=== PATIENT | female | born 2000 | race Caucasian/White ===

== ENCOUNTER 2021-02-25 17:10 | Outpatient (CLI) | payer OTHER, SELFPAY ==
[2021-02-25 18:50] LABS: Amphetamine Urine VISTA NEGATIVE (<1000 ng/mL); Barbiturate Urine VISTA NEGATIVE (< 200 ng/mL); Benzodiazepine Urine VISTA NEGATIVE (< 200 ng/mL); Cocaine Urine VISTA NEGATIVE (< 300 ng/mL); Ecstacy Urine VISTA NEGATIVE (< 500 ng/mL); Methadone Urine VISTA NEGATIVE (< 300 ng/mL); PCP Urine VISTA NEGATIVE (< 25 ng/mL); THC Urine VISTA NEGATIVE (< 50 ng/mL); Vista UDS pH Range 7
[2021-02-27 22:06] LABS: Chlamydia By Nucleic Acid AMP Negative (Negative)
[2021-02-28 16:12] LABS: Gonococcus By Nucleic Acid AMP Negative (Negative)
[2021-03-03 16:28] LABS: HPV Reflexed? NOT INDICATED
== END 2021-02-25 23:59 | disposition short-term general hospital (02) ==
LOC: LABSPEC 17:11
PROVIDERS: Visit Provider Obstetrics & Gynecology
DX: Z34.00 Encounter for supervision of normal first pregnancy, unspecified trimester (principal)
CPT/HCPCS: 80307; 87086; 87088; 87491; 87591; 88175; G0145

== ENCOUNTER 2021-03-10 12:02 | Day surgery (SDC) | payer OTHER, SELFPAY ==
[2021-03-10] VITALS (7 sets, daily range): BP systolic 98–113; BP diastolic 59–81; PULSE 65–83; RESP 16; TEMP 36.6–37.1; O2SAT 98–100; BMI 21.4
--- NOTE | 2021-03-10 | POC_PTH ---
PATIENT: PAN RIVERA LOC: [facility] – [place] U#:[id number] AGE/SX: ROOM: RE03/10/[address]: Dr. Shruthi Houston DO : 2000 BED: DIS: 03/10/2021 SPEC #: [id number] RECD: 03/10/21 14:51 STATUS: HUSSAIN ENNIS #: [id number] MARGARITO: 03/10/21 00:[address]: Shruthi Houston DEPT: SURGICAL PATHOLOGY RECD BY: Dipak Lombardi ENTERED: 03/11/21 09:27 SP TYPE: PROD CONC OTHR DR: Isabella Hernandez, TRADES HELPER-Tara Tissues: Product of conception, NOS Procedures: Surgery Specimen Level IV HEADER OPERATION: Suction dilation and curettage PRE-OP DIAGNOSIS: Incomplete TISSUE SUBMITTED: Products of conception MICROSCOPIC DIAGNOSIS Endometrium, curettage: Chorionic villi, decidualized stroma and trophoblastic cells consistent with products of conception. AM:brit 03/12/2021 MICROSCOPIC DESCRIPTION Slides are reviewed. GROSS DESCRIPTION Received in fixative is one container labeled with the patient's name and designated products of conception. The specimen consists of multiple irregular fragments of pink-red soft tissue that in aggregate measure 5 x 4.5 x 1 cm. tissue is not identified. Clean Energy Policy Analyst tissue is submitted in three cassettes. / SJ:brit 03/11/2021 TC:5 CPT: 71620
[2021-03-10] MEDS: Doxycycline 100 MG CAPSULE PO (12:44)
[2021-03-10] MEDS: Lactated Ringers 1,000 ML 125 ML IV (12:45)
[2021-03-10 13:05] LABS: Absolute Lymphocyte Count 1.53 X10^3/uL (0.83-4.51); Absolute Neutrophil Count 3.5 X10^3/uL (2.0-7.7); Basophil# 0.03 X10^3/uL; Basophil% 0.5 % (0-1); Eosinophil# 0.03 X10^3/uL; Eosinophils% 0.5 % (0-5); Hematocrit 38.5 % (37-47); Hemoglobin 13.7 g/dL (12.0-15.0); Lymphocyte # 1.53 X10^3/ul (0.83-4.51); Lymphocyte % 27.8 % (19-41); Mean Corp Hgb Conc 35.6 g/dL (32-36); Mean Corpuscular Hgb 31.5 pg (27.0-32.0); Mean Corpuscular Volume 88.5 fL (81-99); Mean Platelet Vol. 8.9 fl (6.2-12.0); Monocyte# 0.46 X10^3/uL; Monocyte% 8.3 % (0-10); NRBC Flagged by Analyzer 0 % (0-5); Neutrophil # 3.45 X10^3/uL (2.7-7.7); Neutrophil % 62.7 % (47-70); Platelet Count 291 K/mm3 (150-450); RBC Distribution Width CV 12.7 % (11.6-14.6); RBC Distribution Width SD 41.4 fl (35.1-43.9); Red Blood Count 4.35 M/mm3 (4.2-5.4); White Blood Count 5.5 K/mm3 (4.4-11.0)
--- NOTE | 2021-03-10 13:25 | HP.PCM_ITS ---
History and Physical Date of Admission: 03/10/21 Vital Signs 03/10/21 08:10 Height 5 ft 3 in Weight: 123 lb 6 oz BMI 21.8 BP 118/72 Intake Visit Reasons: OB-Spotting Telephone Sterilizer Required: No Is patient in pain?: No Allergies No Known Allergies Allergy (Verified 03/10/21 08:10) Medications docosahexaenoic acid 200 mg capsule mg PO 02/25/21 [History Confirmed 03/10/21] Last Menstral Period: 12/19/20 Zika: Zika virus screening: Negative : No PFSH PFSH Surgical History S/P knee replacement S/P spinal fusion Family History Other Diabetes Social History Smoking Status: Never smoker alcohol intake: never substance use type: does not use caffeine: Yes what type of physical activity do you participate in: other details: cheer for [employer] frequency: 3-4 times per week seatbelt use: always do you feel safe at home: Yes additional social history: Boyfriend-Kelvin Pregancy History 1 Elective abortions Hx Para Spontaneous abortions Hx # Term Pregnancies Ectopic pregnancies Hx # Pregnancies Multiple births # of living children HPI OB-Spotting Details: PAN RIVERA is a 21 year old who presents for early bleeding. she had small spotting last night and some cramping, no fevers. she has been measuring behind her original KENDALL and there has been slow growth of the pole. today confirmation of loss upon ultrasound was made in office. OB Visit KENDALL Calculator Estimated Delivery Date Method Current WG Current Estimate 10/29/21 Ultrasound #1 6w 5d Other Estimates 09/22/21 LMP (Certain) 12w 0d Initial Weight: Not Recorded Date EGA Weight BP Urine Prot Glucose FHR FuHt Pres Dilation Effaced St Visit Note 02/25/21 4w 6d 119 lb 6 oz 108/60 SM- CRL 1.6mm and GS 9mm yolk sac seen no FHT. 03/05/21 6w 0d 120 lb 100/60 97 SM- SM- CRL 3.6mm MSD 16.8mm yolk sac enlarged 7.2mm. no vb cramping discussed short term follow up 03/10/21 6w 5d 123 lb 6 oz 118/72 SM- co bleeding last night some cramping. upon evaluation CRL 4.6 mm and now no FHT seen. collapsing GS. Diagnostics Diagnostics Diagnostics: Chlamydia DNA (TRACY) Negative (Negative) N.gonorrhoeae DNA (TRACY) Negative (Negative) Details: HIV: Urine Culture: Sequential Screen: NIPT Screen: ROS Const Reports as per HPI and Denies fever(s) ENT Reports system reviewed and no additional complaints, except as documented Card Reports system reviewed and no additional complaints, except as documented Resp Reports system reviewed and no additional complaints, except as documented GI Reports as per HPI Reports as per HPI and Reports abnormal vaginal bleeding Musc Reports system reviewed and no additional complaints, except as documented Skin/Breast Reports system reviewed and no additional complaints, except as documented Neuro Yes system reviewed and no additional complaints, except as documented Endo Reports system reviewed and no additional complaints, except as documented Exam Const General: healthy appearing, comfortable and no acute distress HENKY Head: normal to inspection and normocephalic Neck Neck: no lymphadenopathy noted Thyroid: thyroid normal Chest Chest palpation & inspection: normal inspection of the chest Resp Effort & Inspection: normal respiratory effort Cardio Rate: regular rate Rhythm: regular rhythm GI Inspection: normal to inspection Palpation: soft and nontender External Female Exam: normal external appearance Speculum Exam - Vagina: normal appearance of the vagina and vaginal bleeding Bimanual Exam- Vagina & Uterus: uterine shape normal and non-tender OB/External & Speculum: vaginal bleeding Speculum Exam: vaginal bleeding Skin General: no rashes or lesions noted Neuro General: no focal motor deficits Extrem General: normal to inspection and no pedal edema Psych Appearance: grossly normal Coding Level of Care Code Off vis,est,level 4 Diagnoses Missed O02.1 Assessment and Plan Assessment and Plan (1) Missed : Status: Acute Comment: 4.6mm with no FHT seen. discussed medical vs surgical patient wishes to proceed with suction d and c Plan - Dr. Sanjuana Grover MD: After discussing the patient's diagnosis and treatment plan options, patient wishes to proceed with surgical management. I have discussed with the patient the risks, benefits, and alternatives of the procedure which include but are not limited to risks of anesthesia, bleeding, infection, possible damage to bowel, bladder, or surrounding vasculature which could lead to additional surgery to evaluate any complications. Patient agrees to procedure and wishes to proceed. ACOG/uptodate references given for additional information regarding procedure. 03/10/21 0857<Electronically signed by Sanjuana Grover MD>Date Sanjuana Grover MD
--- NOTE | 2021-03-10 13:33 | PCM.DC ---
Discharge Instructions Diet Discharge Diet: No restrictions Activity Discharge Activity: Return to Normal Activity, May Shower and May Take a Tub Bath (after 1 week) May resume sexual activity in: 1-2 weeks Weight Bearing Status: Weight bearing as tolerated Lifting Restrictions: none Dressing / Incision Call your doctor if you observe: Fever of 101 or Higher, Using more than 1 pad per hour, Shortness of breath and Uncontrolled pain Follow Up Care Please Follow Up With: Shruthi Houston DO When: Call [phone] to schedule appointment. Test Results: Test results from this visit will be discussed in further detail at your follow-up appointment, if applicable. Discharge Plan Admission Primary Reason for Your Visit: dilation and curettage Attending Provider: Shruthi Houston Primary Care Provider: Isabella Hernandez NP Discharge Orders/Prescriptions Prescriptions: New oxycodone-acetaminophen [Percocet] 5-325 mg tablet 1 tab PO Q4H PRN (Reason: pain) 3 Days Qty: 18 RF: 0 ibuprofen 800 mg tablet 800 mg PO Q8H PRN (Reason: pain) 7 Days Qty: 30 RF: 0 Continued prenat.vits,winter,ihm-kcig-eqbux Tablet 1 tab PO DAILY RF: 0 Referrals / Follow Up: Isabella Hernandez NP, MOTOR PATROL OPERATOR-C [Primary Care Provider] - Disposition Disposition (needs filled in before D/C Order can be placed): Home, Self Care
[2021-03-10] MEDS: Lidocaine 1% (20 ml mdv) 20 ML Vial (14:11)
--- NOTE | 2021-03-10 14:20 | OP.PCM_ITS ---
Problems Associated Problem List Diagnoses (1) Missed : Report of Operation Date of Procedure: 03/10/21 Pre-Operative Diagnosis: incomplete , 12 weeks from last menses, measuring 6 week size Post-Operative Diagnosis: incomplete , 12 weeks from last menses, measuring 6 week size Surgery/Procedure Performed:: Suction dilation and curettage Description of Surgical Findings:: Patient was prepped and draped in a normal sterile fashion under MAC anesthesia. A weighted speculum was placed in the vagina and the anterior lip of the cervix was grasped with a single-tooth tenaculum. A paracervical block was placed with 1% lidocaine. Cervix was progressively dilated to allow passage of a 7 mm curved suction tubing. Uterine sounded to 12 cm. A suction Curettage was performed followed by a sharp curettage until a gritty texture was noted. Specimen was sent to pathology. All instruments were removed from the vagina and excellent hemostasis was noted. Patient was awoken and taken to recovery in stable condition. Surgeon: latricia discharge door operator: None Type of Anesthesia: MAC Specimen's removed: products of conception Estimated Blood Loss (mL): 30cc Fluids Replaced: 800cc Complications none Admit VTE Documentation VTE Present on Admission: Yes VTE Mechan Device Prophylaxis: SCD's VTE Pharm Prophylaxis ordered?: No Multi Select Codes Urinary/Genital Urinary/Genital CPT Codes: 35996 Surg Trtmt missed Ab 1TM
[2021-03-10] MEDS: Methylergonovine 0.2 MG/ML Ampul IM (15:09)
== END 2021-03-10 23:59 | disposition home or self-care (01) ==
LOC: SDC 12:05 → AC 12:06
PROVIDERS: Obstetrics & Gynecology; PCP Registered Nurse; Referring Provider Obstetrics & Gynecology; Visit Provider Obstetrics & Gynecology
PROC: (CPT 59820; principal; 2021-03-10 13:45)
DX: O02.1 Missed abortion (principal)
CPT/HCPCS: 59820; 85025; 86850; 86900; 86901; 87426; 88305; J7120; J2405

== ENCOUNTER → 2022-03-12 | Outpatient (CLI) | payer OTHER, SELFPAY ==
[2022-03-16 21:07] LABS: Chlamydia By Nucleic Acid AMP Negative (Negative)
[2022-03-17 16:48] LABS: Gonococcus By Nucleic Acid AMP Negative (Negative)
== END | disposition home or self-care (01) ==
LOC: LABSPEC 16:24
PROVIDERS: PCP Registered Nurse; Referring Provider Obstetrics & Gynecology; Visit Provider Obstetrics & Gynecology
DX: Z34.90 Encounter for supervision of normal pregnancy, unspecified, unspecified trimester (principal)
CPT/HCPCS: 87086; 87491; 87591

== ENCOUNTER → 2022-04-16 | Outpatient (CLI) | payer OTHER, SELFPAY ==
[2022-04-16 16:31] LABS: Absolute Lymphocyte Count 1.46 X10^3/uL (0.83-4.51); Absolute Neutrophil Count 5.5 X10^3/uL (2.0-7.7); Basophil# 0.03 X10^3/uL; Basophil% 0.4 % (0-1); Eosinophil# 0.03 X10^3/uL; Eosinophils% 0.4 % (0-5); Hematocrit 38.5 % (37-47); Hemoglobin 13.6 g/dL (12.0-15.0); Lymphocyte # 1.46 X10^3/ul (0.83-4.51); Lymphocyte % 19.1 % (19-41); Mean Corp Hgb Conc 35.3 g/dL (32-36); Mean Corpuscular Hgb 32.6 pg (27.0-32.0); Mean Corpuscular Volume 92.3 fL (81-99); Mean Platelet Vol. 9.3 fl (6.2-12.0); Monocyte# 0.59 X10^3/uL; Monocyte% 7.7 % (0-10); NRBC Flagged by Analyzer 0 % (0-5); Neutrophil # 5.51 X10^3/uL (2.7-7.7); Neutrophil % 72.1 % (47-70); Platelet Count 297 K/mm3 (150-450); RBC Distribution Width CV 12.8 % (11.6-14.6); RBC Distribution Width SD 43.2 fl (35.1-43.9); Red Blood Count 4.17 M/mm3 (4.2-5.4); White Blood Count 7.6 K/mm3 (4.4-11.0)
[2022-04-16 18:37] LABS: HIV - WCH Non-Reactive (Nonreactive); Hepatitis B Surface Antigen Non-Reactive (Nonreactive); Hepatitis C Antibody Non-Reactive (Nonreactive); Rubella IgG Reactive (Nonreactive); Syphilis Antibodies Non-reactive
== END | disposition home or self-care (01) ==
LOC: LAB 14:26
PROVIDERS: PCP Registered Nurse; Referring Provider Obstetrics & Gynecology; Visit Provider Obstetrics & Gynecology
DX: Z34.90 Encounter for supervision of normal pregnancy, unspecified, unspecified trimester (principal)
CPT/HCPCS: 36415; 85025; 86703; 86762; 86780; 86803; 86850; 86900; 86901; 87340

== ENCOUNTER → 2022-08-04 | Outpatient (CLI) | payer OTHER, SELFPAY ==
[2022-08-04 14:58] LABS: Absolute Lymphocyte Count 1.41 X10^3/uL (0.83-4.51); Absolute Neutrophil Count 5.5 X10^3/uL (2.0-7.7); Basophil# 0.04 X10^3/uL; Basophil% 0.5 % (0-1); Eosinophil# 0.03 X10^3/uL; Eosinophils% 0.4 % (0-5); Hematocrit 35.6 % (37-47); Hemoglobin 12.1 g/dL (12.0-15.0); Lymphocyte # 1.41 X10^3/ul (0.83-4.51); Lymphocyte % 18.3 % (19-41); Mean Corpuscular Hgb 32.5 pg (27.0-32.0); Mean Corpuscular Volume 95.7 fL (81-99); Mean Platelet Vol. 9.6 fl (6.2-12.0); Monocyte# 0.61 X10^3/uL; Monocyte% 7.9 % (0-10); NRBC Flagged by Analyzer 0 % (0-5); Neutrophil # 5.53 X10^3/uL (2.7-7.7); Platelet Count 277 K/mm3 (150-450); RBC Distribution Width SD 45.6 fl (35.1-43.9); Red Blood Count 3.72 M/mm3 (4.2-5.4); White Blood Count 7.7 K/mm3 (4.4-11.0)
[2022-08-04 15:49] LABS: Glucose Challenge Gest 1H 50g 83 mg/dL (70-140)
[2022-08-05 12:09] LABS: HIV - WCH Nonreactive (Nonreactive); Syphilis Antibodies Nonreactive
== END | disposition home or self-care (01) ==
LOC: LAB 14:18
PROVIDERS: PCP Registered Nurse; Referring Provider Obstetrics & Gynecology; Visit Provider Obstetrics & Gynecology
DX: Z34.92 Encounter for supervision of normal pregnancy, unspecified, second trimester (principal)
CPT/HCPCS: 36415; 82950; 85025; 86703; 86780

== ENCOUNTER → 2022-10-07 | Outpatient (CLI) | payer OTHER, SELFPAY | END | disposition home or self-care (01) | PROVIDERS: PCP Registered Nurse; Visit Provider Obstetrics & Gynecology | DX: Z34.90 Encounter for supervision of normal pregnancy, unspecified, unspecified trimester (principal) | CPT/HCPCS: 87081 ==

== ENCOUNTER 2022-11-09 12:55 | Outpatient (CLI) | payer OTHER, SELFPAY ==
--- NOTE | 2022-11-09 15:23 | OB.TRI.HP_ITS ---
HPI - General General Date of Admission: 11/09/22 HPI Narrative PAN RIVERA, is a 22 y/o @ 41 weeks 0 days who presents to L&D for an NST due to post date . IOL was planned for today, however due to nursing staffing shortage, her IOL is being moved to tomorrow am instead. She denies LOF, vaginal bleeding, or dec fm. Maternal Data Information KENDALL Calculator Estimated Delivery Date Method Current WG Current Estimate 11/02/22 Ultrasound #1 41w 0d Other Estimates 10/25/22 LMP (Uncertain) 42w 1d PFSH PFSH Medical History Missed Home Medications prenat.vits,winter,kql-woup-upocf 1 tab PO DAILY 03/10/21 [History Last Taken Unknown] promethazine 12.5 mg tablet 12.5 mg PO Q6H PRN nausea and vomiting #60 tabs 03/16/22 [Rx Last Taken Unknown] Allergy/AdvReac Type Severity Reaction Status Date / Time No Known Allergies Allergy Verified 11/03/22 15:32 Family History Grandfather Diabetes Aortic valve replaced Surgical History S/P knee replacement S/P spinal fusion Social History Smoking Status: Never smoker alcohol intake: never substance use type: does not use caffeine: Yes what type of physical activity do you participate in: other details: 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 frequency: 3-4 times per week seatbelt use: always do you feel safe at home: Yes additional social history: Boyfriend-Kelvin History 2 Elective abortions Hx Para Spontaneous abortions 1 Hx # Term Pregnancies Ectopic pregnancies Hx # Pregnancies Multiple births # of living children Visit Details Expected Delivery Route/Plan Labor Preferences- CB/BF classes: discussed labor support person: Kelvin labor intervention preferences: [] pain management options preferred: natural-spinal fusion cut cord/dad catch: yes : wants PP control planned: discussed discussed possible routes of delivery and associated risks: [] special requests: [] Plans Covid status: [] Flu vaccine: [] Tdap vaccine: declines Rhogam: NA LARC form signed: done Problem list reviewed and updated with the most current plan of care details and appropriate orders placed. Relevant counseling for the gestational age provided. Continue routine care and follow up unless otherwise noted in visit notes/problem list details OB Flowsheet Initial Weight: Not Recorded Date -?-?-?-?-?-?-?-?-?-?-?-?- EGA Weight BP Urine Prot -?-?-?-?-?-?-?-?-?-?-?-?- Glucose FHR FuHt Pres Dilation -?-?-?-?-?-?-?-?-?-?-?-?- Effaced St Visit Note 03/12/22 -?-?-?-?-?-?-?-?-?-?-?-?- 6w 3d 121 lb 2 oz 130/76 -?-?-?-?-?-?-?-?-?-?-?-?- 109 -?-?-?-?-?-?-?-?-?--?-?-?- JV- single live iup measuring 6 weeks 3 days with flickering of heart beat. return in 2 weeks for close follow up due to h/o miscarriage. 03/26/22 -?-?-?-?-?-?-?-?-?--?-?-?- 8w 3d 123 lb 8 oz 118/74 Nega tive -?-?-?-?-?-?-?-?-?-?-?-?- Negative 165 -?-?-?-?-?-?-?-?-?-?-?-?- JV- single live IUP, now measuring 8weeks 3 days and more accurate views today. new kendall 11/02/22. declines NIPT. 04/16/22 -?-?-?-?-?-?-?-?-?-?-?-?- 11w 3d 127 lb 6 oz 120/79 Nega tive -?-?-?-?--?-?-?-?-?-?-?-?- Negative 155 -?-?-?-?-?-?-?-?-?-?-?-?- JV- no complaint s today, no bleeding or cramping. 05/12/22 -?-?-?-?-?-?-?-?-?-?-?-?- 15w 1d 131 lb 6 oz 119/79 Nega tive -?-?-?-?-?-?-?-?-?-?-?-?- Negative 155 -?-?-?-?-?-?-?-?-?-?-?-?- LC- no complaint s. doing well. no vb/cramping. hx of spinal fusion. obtaining records. 06/08/22 -?-?-?-?-?-?-?-?-?-?-?-?- 19w 0d 135 lb 116/71 Negative -?-?-?-?-?-?-?-?-?-?-?-?- Negative 160 20 -?-?-?-?-?-?-?-?-?-?-?-?- KW- no complaint s. no vb/cramping. possible flutters. anatomy us rescheduled for 06/1507/23/22 -?-?-?-?-?-?-?-?-?-?-?-?- 25w 3d 144 lb 8 oz 120/68 Nega tive -?-?-?-?-?-?-?-?-?-?-?-?- Negative 145 -?-?-?-?-?-?-?-?-?-?-?-?- JV- no lof, vagi nal bleeding, or dec fm. gct ordered. 08/04/22 -?-?-?-?-?-?-?-?-?-?-?-?- 27w 1d 143 lb 118/74 -?-?-?-?-?-?-?-?-?-?-?-?- 146 27 -?-?-?-?-?-?-?-?-?-?-?-?- JV- no lof, vagi nal bleeding, or dec fm. larc signed. plan for tdap next visit. 08/19/22 -?-?-?-?-?-?-?-?-?-?-?-?- 29w 2d 145 lb 100/64 Negative -?-?-?-?-?-?-?-?-?-?-?-?- Negative 130 30 -?-?-?-?-?-?-?-?-?-?-?-?- KW-+FM, no lof/v b/ctx. many questions today. tdap next visit. CB edu classes encouraged. 09/06/22 -?-?-?-?-?-?-?-?-?-?-?-?- 31w 6d Negative -?-?-?-?-?-?-?-?-?-?-?-?- Negative 145 32 -?-?-?-?-?-?-?-?-?-?-?-?- KW-+fm. no lof/v b/ctx KW-+fm. no lof/vb/ctx. KENDALL ray djusted in chart to reflect US dating and not LMP. See note from second visit. Declines tdap. 09/23/22 -?-?-?-?-?-?-?-?-?-?-?-?- 34w 2d 150 lb 120/74 Negative -?-?-?-?-?-?-?-?-?-?-?-?- Negative 143 34 -?-?-?-?-?-?-?-?-?-?-?-?- MH-No VB, LOF. G ood Fm. Denies concerns 10/07/22 -?-?-?-?-?-?-?-?-?-?-?--?- 36w 2d 149 lb 4 oz 127/82 Nega tive -?-?-?-?-?-?-?-?-?-?-?-?- Negative 160 36 Cephalic 1 -?-?-?-?-?-?-?-?-?-?-?-?- 70 -2 JV- no lof , vaginal bleeding, or dec fm. gbs done today 10/12/22 -?-?-?-?-?-?-?-?-?-?-?-?- 37w 0d 149 lb 2 oz 127/77 -?-?-?-?-?-?-?-?-?-?-?-?- 135 38 Cephalic -?-?-?-?-?-?-?-?-?-?-?-?- KW-no vb/lof/ctx . good fm. labor precautions 10/22/22 -?-?-?-?-?-?-?-?-?-?-?-?- 38w 3d 149 lb 2 oz 119/78 Nega tive -?-?-?-?-?-?-?-?-?-?-?-?- Negative 140 39 Cephalic 2 -?-?-?-?-?-?-?-?-?-?-?-?- 70 -2 kw-no vb/l of/ctx. good fm. labor precautions 10/28/22 -?-?-?-?-?-?-?-?-?-?-?-?- 39w 2d 149 lb 8 oz 117/77 Nega tive -?-?-?-?-?-?-?-?-?-?-?-?- Negative 140 39 Cephalic 2 .5 -?-?-?-?-?-?-?-?-?-?-?-?- 70 -2 kw-novb/lo f/ctx. good fm. labor precautions. requesting membrane sweep today. 11/03/22 -?-?-?-?-?-?-?-?-?-?-?-?- 40w 1d 148 lb 4 oz 129/84 Nega tive -?-?-?-?-?--?-?-?-?-?-?-?- Negative 150 40 Cephalic 2 -?-?-?-?-?-?-?-?-?-?-?-?- 80 -2 JV- IOL se t up for next tuesday. pt is prepared for not having an epidural due to spinal fusion surgery. Notes Visit Date: 05/12/22 Last Updated by: Hayde Richard, CNM interested in midwifery care for labor/, waterbirth ROS Constitutional Constitutional: Reports systems reviewed and no addt'l complaints, except as documented Gastrointestinal Gastrointestinal: Denies bloating, constipation, cramping, diarrhea, nausea or vomiting Genitourinary Genitourinary: Reports other Details: Denies vaginal odor, vaginal bleeding, or vaginal discharge ; Denies difficulty urinating or flank pain Physical Exam HEENT normocephalic Resp normal respiratory effort and normal air movement no CVA tenderness Narrative: cx is unchanged at 2/80/-2, membranes intact. Extremity normal to inspection General Extremity: edema bilateral (trace ) NST FHR Rate Baby A Baseline: 140 Variability:: Moderate Accelerations:: 15 x 15 Decelerations:: None NST Reactive:: Yes FHR Category:: Category I Assessment & Plan (1) Post-dates : (2) Supervision of normal : QUALIFIERS: Normal : other normal Trimester: third trimester Qualified Code(s): Z34.83 - Encounter for supervision of other normal , third trimester COMMENT: KENDALL 10/25/22 Boy. Boyfriend Kelvin PLAN: Plan NST reactive, plan to dc to home now and return in am for IOL. labor precautions in the meantime were discussed. Charges/Coding Multi Select Codes Visit Charges Office Visit/Consults: 74447 OV L3 Est Urinary/Genital Urinary/Genital CPT Codes: 74687-79 non-stress test Interp
--- NOTE | 2022-11-09 15:23 | OB.TRI.NOTE ---
HPI - General General Date of Admission: 11/09/22 HPI Narrative PAN RIVERA, is a 22 y/o @ 41 weeks 0 days who presents to L&D for an NST due to post date . IOL was planned for today, however due to nursing staffing shortage, her IOL is being moved to tomorrow am instead. She denies LOF, vaginal bleeding, or dec fm. Maternal Data Information KENDALL Calculator Estimated Delivery Date Method Current WG Current Estimate 11/02/22 Ultrasound #1 41w 0d Other Estimates 10/25/22 LMP (Uncertain) 42w 1d PFSH PFSH Medical History Missed Home Medications prenat.vits,winter,ogk-rifj-kyfab 1 tab PO DAILY 03/10/21 [History Last Taken Unknown] promethazine 12.5 mg tablet 12.5 mg PO Q6H PRN nausea and vomiting #60 tabs 03/16/22 [Rx Last Taken Unknown] Allergy/AdvReac Type Severity Reaction Status Date / Time No Known Allergies Allergy Verified 11/03/22 15:32 Family History Grandfather Diabetes Aortic valve replaced Surgical History S/P knee replacement S/P spinal fusion Social History Smoking Status: Never smoker alcohol intake: never substance use type: does not use caffeine: Yes what type of physical activity do you participate in: other details: 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 frequency: 3-4 times per week seatbelt use: always do you feel safe at home: Yes additional social history: Boyfriend-Kelvin History 2 Elective abortions Hx Para Spontaneous abortions 1 Hx # Term Pregnancies Ectopic pregnancies Hx # Pregnancies Multiple births # of living children Visit Details Expected Delivery Route/Plan Labor Preferences- CB/BF classes: discussed labor support person: Kelvin labor intervention preferences: [] pain management options preferred: natural-spinal fusion cut cord/dad catch: yes : wants PP control planned: discussed discussed possible routes of delivery and associated risks: [] special requests: [] Plans Covid status: [] Flu vaccine: [] Tdap vaccine: declines Rhogam: NA LARC form signed: done Problem list reviewed and updated with the most current plan of care details and appropriate orders placed. Relevant counseling for the gestational age provided. Continue routine care and follow up unless otherwise noted in visit notes/problem list details OB Flowsheet Initial Weight: Not Recorded Date <del>?</del> EGA Weight BP Urine Prot <del>?</del> Glucose FHR FuHt Pres Dilation <del>?</del> Effaced St Visit Note 03/12/22 <del>?</del> 6w 3d 121 lb 2 oz 130/76 <del>?</del> 109 <del>?</del> JV- single live iup measuring 6 weeks 3 days with flickering of heart beat. return in 2 weeks for close follow up due to h/o miscarriage. 03/26/22 <del>?</del> 8w 3d 123 lb 8 oz 118/74 Negative <del>?</del> Negative 165 <del>?</del> JV- single live IUP, now measuring 8weeks 3 days and more accurate views today. new kendall 11/02/22. declines NIPT. 04/16/22 <del>?</del> 11w 3d 127 lb 6 oz 120/79 Negative <del>?</del> Negative 155 <del>?</del> JV- no complaints today, no bleeding or cramping. 05/12/22 <del>?</del> 15w 1d 131 lb 6 oz 119/79 Negative <del>?</del> Negative 155 <del>?</del> LC- no complaints. doing well. no vb/cramping. hx of spinal fusion. obtaining records. 06/08/22 <del>?</del> 19w 0d 135 lb 116/71 Negative <del>?</del> Negative 160 20 <del>?</del> KW- no complaints. no vb/cramping. possible flutters. anatomy us rescheduled for 06/1507/23/22 <del>?</del> 25w 3d 144 lb 8 oz 120/68 Negative <del>?</del> Negative 145 <del>?</del> JV- no lof, vaginal bleeding, or dec fm. gct ordered. 08/04/22 <del>?</del> 27w 1d 143 lb 118/74 <del>?</del> 146 27 <del>?</del> JV- no lof, vaginal bleeding, or dec fm. larc signed. plan for tdap next visit. 08/19/22 <del>?</del> 29w 2d 145 lb 100/64 Negative <del>?</del> Negative 130 30 <del>?</del> KW-+FM, no lof/vb/ctx. many questions today. tdap next visit. CB edu classes encouraged. 09/06/22 <del>?</del> 31w 6d Negative <del>?</del> Negative 145 32 <del>?</del> KW-+fm. no lof/vb/ctx KW-+fm. no lof/vb/ctx. KENDALL adjusted in chart to reflect US dating and not LMP. See note from second visit. Declines tdap. 09/23/22 <del>?</del> 34w 2d 150 lb 120/74 Negative <del>?</del> Negative 143 34 <del>?</del> MH-No VB, LOF. Good Fm. Denies concerns 10/07/22 <del>?</del> 36w 2d 149 lb 4 oz 127/82 Negative <del>?</del> Negative 160 36 Cephalic 1 <del>?</del> 70 -2 JV- no lof, vaginal bleeding, or dec fm. gbs done today 10/12/22 <del>?</del> 37w 0d 149 lb 2 oz 127/77 <del>?</del> 135 38 Cephalic <del>?</del> KW-no vb/lof/ctx. good fm. labor precautions 10/22/22 <del>?</del> 38w 3d 149 lb 2 oz 119/78 Negative <del>?</del> Negative 140 39 Cephalic 2 <del>?</del> 70 -2 kw-no vb/lof/ctx. good fm. labor precautions 10/28/22 <del>?</del> 39w 2d 149 lb 8 oz 117/77 Negative <del>?</del> Negative 140 39 Cephalic 2.5 <del>?</del> 70 -2 kw-novb/lof/ctx. good fm. labor precautions. requesting membrane sweep today. 11/03/22 <del>?</del> 40w 1d 148 lb 4 oz 129/84 Negative <del>?</del> Negative 150 40 Cephalic 2 <del>?</del> 80 -2 JV- IOL set up for next tuesday. pt is prepared for not having an epidural due to spinal fusion surgery. Notes Visit Date: 05/12/22 Last Updated by: Hayde Richard CNM interested in midwifery care for labor/, waterbirth ROS Constitutional Constitutional: Reports systems reviewed and no addt'l complaints, except as documented Gastrointestinal Gastrointestinal: Denies bloating, constipation, cramping, diarrhea, nausea or vomiting Genitourinary Genitourinary: Reports other Details: Denies vaginal odor, vaginal bleeding, or vaginal discharge ; Denies difficulty urinating or flank pain Physical Exam HEENT normocephalic Resp normal respiratory effort and normal air movement no CVA tenderness Narrative: cx is unchanged at 2/80/-2, membranes intact. Extremity normal to inspection General Extremity: edema bilateral (trace ) NST FHR Rate Baby A Baseline: 140 Variability:: Moderate Accelerations:: 15 x 15 Decelerations:: None NST Reactive:: Yes FHR Category:: Category I Assessment & Plan (1) Post-dates : (2) Supervision of normal : QUALIFIERS: Normal : other normal Trimester: third trimester Qualified Code(s): Z34.83 - Encounter for supervision of other normal , third trimester COMMENT: KENDALL 10/25/22 Boy. Boyfriend Kelvin PLAN: Plan NST reactive, plan to dc to home now and return in am for IOL. labor precautions in the meantime were discussed. Charges/Coding Multi Select Codes Visit Charges Office Visit/Consults: 73137 OV L3 Est Urinary/Genital Urinary/Genital CPT Codes: 41622-87 non-stress test Interp
== END 2022-11-09 15:15 | disposition home or self-care (01) ==
LOC: WPOUT 13:07 → WP 13:07
PROVIDERS: PCP Registered Nurse; Referring Provider Advanced Practice Midwife; Visit Provider Advanced Practice Midwife
DX: Z34.83 Encounter for supervision of other normal pregnancy, third trimester (principal)
CPT/HCPCS: 59025; 59050; 99221; G0378

== ENCOUNTER 2022-11-10 11:34 | Inpatient (IN) | payer OTHER, SELFPAY ==
[2022-11-10] VITALS (36 sets, daily range): BP systolic 114–149; BP diastolic 58–91; PULSE 74–120; TEMP 36.4–37.4; O2SAT 90–100; BMI 26.6
[2022-11-10] MEDS: Lactated Ringers 1,000 ML 50 ML IV (12:25)
[2022-11-10 12:39] LABS: Absolute Lymphocyte Count 1.26 X10^3/uL (0.83-4.51); Absolute Neutrophil Count 5.6 X10^3/uL (2.0-7.7); Basophil# 0.03 X10^3/uL; Basophil% 0.4 % (0-1); Eosinophil# 0.02 X10^3/uL; Eosinophils% 0.3 % (0-5); Hematocrit 34.3 % (37-47); Hemoglobin 12.4 g/dL (12.0-15.0); Lymphocyte # 1.26 X10^3/ul (0.83-4.51); Lymphocyte % 16.7 % (19-41); Mean Corp Hgb Conc 36.2 g/dL (32-36); Mean Corpuscular Volume 91.2 fL (81-99); Mean Platelet Vol. 9.5 fl (6.2-12.0); NRBC Flagged by Analyzer 0 % (0-5); Neutrophil # 5.59 X10^3/uL (2.7-7.7); Neutrophil % 74.1 % (47-70); Platelet Count 266 K/mm3 (150-450); RBC Distribution Width CV 13.1 % (11.6-14.6); RBC Distribution Width SD 42.5 fl (35.1-43.9); Red Blood Count 3.76 M/mm3 (4.2-5.4); White Blood Count 7.5 K/mm3 (4.4-11.0)
[2022-11-10 13:15] LABS: Syphilis Antibodies Non-reactive
--- NOTE | 2022-11-10 14:03 | HP.PCM.OB_ITS ---
HPI - General General Date of Admission: 11/10/22 HPI Narrative PAN RIVERA, is a 22 y/o @ 41 weeks 1 day who presents to L&D for IOL due to post dates. She is carl about every one minute already but not feeling them all. Maternal Data Information KENDALL Calculator Estimated Delivery Date Method Current WG Current Estimate 11/02/22 Ultrasound #1 41w 1d Other Estimates 10/25/22 LMP (Uncertain) 42w 2d PFSH PFSH Medical History Missed Home Medications prenat.vits,winter,[id number] 1 tab PO DAILY 03/10/21 [History Last Taken 11/09/22] Allergy/AdvReac Type Severity Reaction Status Date / Time No Known Allergies Allergy Verified 11/10/22 13:51 Family History Grandfather Diabetes Aortic valve replaced Surgical History S/P knee replacement S/P spinal fusion Social History Smoking Status: Never smoker alcohol intake: never substance use type: does not use caffeine: Yes what type of physical activity do you participate in: other details: 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 frequency: 3-4 times per week seatbelt use: always do you feel safe at home: Yes additional social history: Boyfriend-Kelvin History 2 Elective abortions Hx Para 0 Spontaneous abortions 1 Hx # Term Pregnancies Ectopic pregnancies Hx # Pregnancies Multiple births # of living children Visit Details Expected Delivery Route/Plan Labor Preferences- CB/BF classes: discussed labor support person: Kelvin labor intervention preferences: [] pain management options preferred: natural-spinal fusion cut cord/dad catch: yes : wants PP control planned: discussed discussed possible routes of delivery and associated risks: [] special requests: [] Plans Covid status: [] Flu vaccine: [] Tdap vaccine: declines Rhogam: NA LARC form signed: done Problem list reviewed and updated with the most current plan of care details and appropriate orders placed. Relevant counseling for the gestational age provided. Continue routine care and follow up unless otherwise noted in visit notes/problem list details OB Flowsheet Initial Weight: Not Recorded Date -?-?-?-?-?-?-?-?-?-?-?-?- EGA Weight BP Urine Prot -?-?-?-?-?-?-?-?-?-?-?-?- Glucose FHR FuHt Pres Dilation -?-?-?-?-?-?-?-?-?-?-?-?- Effaced St Visit Note 03/12/22 -?-?-?-?-?-?-?-?-?-?-?-?- 6w 3d 121 lb 2 oz 130/76 -?-?-?-?-?-?-?-?-?-?-?-?- 109 -?-?-?--?-?-?-?-?-?-?-?-?- JV- single live iup measuring 6 weeks 3 days with flickering of heart beat. return in 2 weeks for close follow up due to h/o miscarriage. 03/26/22 -?-?-?--?-?-?-?-?-?-?-?-?- 8w 3d 123 lb 8 oz 118/74 Nega tive -?-?-?-?-?-?-?-?-?-?-?-?- Negative 165 -?-?-?-?-?-?-?-?-?-?-?-?- JV- single live IUP, now measuring 8weeks 3 days and more accurate views today. new kendall 11/02/22. declines NIPT. 04/16/22 -?-?-?-?-?-?-?-?-?-?-?-?- 11w 3d 127 lb 6 oz 120/79 Nega tive -?-?-?-?-?-?-?-?-?-?-?-?- Negative 155 -?-?-?-?-?-?-?-?-?-?-?-?- JV- no complaint s today, no bleeding or cramping. 05/12/22 -?-?-?-?-?-?-?-?-?-?-?-?- 15w 1d 131 lb 6 oz 119/79 Nega tive -?-?-?-?-?-?-?-?-?-?-?-?- Negative 155 -?-?-?-?-?-?-?-?-?-?-?-?- LC- no complaint s. doing well. no vb/cramping. hx of spinal fusion. obtaining records. 06/08/22 -?-?-?-?-?-?-?-?-?-?-?-?- 19w 0d 135 lb 116/71 Negative -?-?-?-?-?-?-?-?-?-?-?-?- Negative 160 20 -?-?-?-?-?-?-?-?-?-?-?-?- KW- no complaint s. no vb/cramping. possible flutters. anatomy us rescheduled for 06/1507/23/22 -?-?-?-?-?-?-?-?-?-?-?-?- 25w 3d 144 lb 8 oz 120/68 Nega tive -?-?-?-?-?-?-?-?-?-?-?-?- Negative 145 -?-?-?-?-?-?-?-?-?-?-?-?- JV- no lof, vagi nal bleeding, or dec fm. gct ordered. 08/04/22 -?-?-?-?-?-?-?-?-?-?-?-?- 27w 1d 143 lb 118/74 -?-?-?-?-?-?-?-?-?-?-?-?- 146 27 -?-?-?-?-?-?-?-?-?-?-?-?- JV- no lof, vagi nal bleeding, or dec fm. larc signed. plan for tdap next visit. 08/19/22 -?-?-?-?-?-?-?-?-?-?-?-?- 29w 2d 145 lb 100/64 Negative -?-?-?-?-?-?-?-?-?-?-?-?- Negative 130 30 -?-?-?-?-?-?-?-?-?-?-?-?- KW-+FM, no lof/v b/ctx. many questions today. tdap next visit. CB edu classes encouraged. 09/06/22 -?-?-?-?-?-?-?-?-?-?-?-?- 31w 6d Negative -?-?-?-?-?-?-?-?-?-?-?-?- Negative 145 32 -?-?-?-?-?-?-?-?-?-?-?-?- KW-+fm. no lof/v b/ctx KW-+fm. no lof/vb/ctx. KENDALL ray djusted in chart to reflect US dating and not LMP. See note from second visit. Declines tdap. 09/23/22 -?-?-?-?-?-?-?-?-?-?-?-?- 34w 2d 150 lb 120/74 Negative -?-?-?-?-?-?-?-?-?-?-?-?- Negative 143 34 -?-?-?-?-?-?-?-?-?-?-?-?- MH-No VB, LOF. G ood Fm. Denies concerns 10/07/22 -?-?-?-?-?--?-?-?-?-?-?-?- 36w 2d 149 lb 4 oz 127/82 Nega tive -?-?-?-?-?-?-?-?-?-?-?-?- Negative 160 36 Cephalic 1 -?-?-?-?-?-?-?-?-?-?-?-?- 70 -2 JV- no lof , vaginal bleeding, or dec fm. gbs done today 10/12/22 -?-?-?-?-?-?-?-?-?-?-?-?- 37w 0d 149 lb 2 oz 127/77 -?-?-?-?-?-?-?-?-?-?-?-?- 135 38 Cephalic -?-?-?-?-?-?-?-?-?-?-?-?- KW-no vb/lof/ctx . good fm. labor precautions 10/22/22 -?-?-?-?-?-?-?-?-?-?-?-?- 38w 3d 149 lb 2 oz 119/78 Nega tive -?-?-?-?-?-?-?-?-?-?-?-?- Negative 140 39 Cephalic 2 -?-?-?-?-?-?-?-?-?-?-?-?- 70 -2 kw-no vb/l of/ctx. good fm. labor precautions 10/28/22 -?-?-?-?-?-?-?-?-?-?-?-?- 39w 2d 149 lb 8 oz 117/77 Nega tive -?-?-?-?-?-?-?-?-?-?-?-?- Negative 140 39 Cephalic 2 .5 -?-?-?-?-?-?-?-?-?-?-?-?- 70 -2 kw-novb/lo f/ctx. good fm. labor precautions. requesting membrane sweep today. 11/03/22 -?-?-?-?-?-?-?-?-?-?-?-?- 40w 1d 148 lb 4 oz 129/84 Nega tive -?-?-?-?-?-?-?-?-?-?-?-?- Negative 150 40 Cephalic 2 -?-?-?-?-?-?-?-?-?-?-?-?- 80 -2 JV- IOL se t up for next tuesday. pt is prepared for not having an epidural due to spinal fusion surgery. Notes Visit Date: 05/12/22 Last Updated by: Hayde Richard CNM interested in midwifery care for labor/, waterbirth ROS Constitutional Constitutional: Denies change in weight, fatigue, fever(s), headache(s), poor appetite or weakness Eyes Eyes: Denies blurry vision, change in vision, seeing flashes or spots in vision ENT HEENT: Denies dizziness, headache(s), loss taste/smell or sore throat Cardiovascular Cardiovascular: Denies chest pain, dizziness, dyspnea, irregular heart rhythm, leg edema, palpitations, rapid heart rate or vomiting Respiratory/Chest Respiratory/Chest: Denies chest tightness, cough, dyspnea or breast pain Gastrointestinal Gastrointestinal: Denies abdominal pain, anorexia, constipation, cramping, diarrhea, hemorrhoids, vomiting or weight changes Genitourinary Genitourinary: Denies dysuria, flank pain, genital lesions, genital pain, urinary frequency or urinary urgency Musculoskeletal Musculoskeletal: Denies back pain, difficulty walking, joint pain, limited range of motion, muscle cramps or numbness Integumentary Integumentary: Denies lesions or unusual bruising Neurologic Neurologic: Denies abnormal movements, abnormal speech, dizziness, numbness, seizure-like activity or syncope Psychiatric Psychiatric: Denies anxiety, behavioral changes, change in appetite, change in libido, cognitive impairment, confusion, depression, difficulty concentrating, hallucinations or suicidal thoughts Endocrine Endocrinology: Denies excessive sweating, polydipsia or polyuria Hematologic/Lymphatic Hematologic/Lymphatic: Denies easy bleeding, easy bruising or lymphadenopathy Allergic/Immunologic Allergic/Immunologic: Denies itchy eyes, lip swelling, seasonal rhinorrhea, rhinitis, throat swelling, tongue swelling, eczemia, wheezing or asthma Vital Signs Vital Signs Vital Signs: 11/10/22 12:17 11/10/22 12:17 11/10/22 12:17 Temperature Pulse Rate 93 97 Blood Pressure 138/90 H BP Systolic 138 BP Diastolic 90 Pulse Ox 11/10/22 12:17 11/10/22 12:17 11/10/22 12:17 Temperature 98.1 F 98.1 F Pulse Rate Blood Pressure BP Systolic BP Diastolic Pulse Ox 98 11/10/22 13:59 11/10/22 13:59 11/10/22 13:59 Temperature 98.1 F Pulse Rate 88 Blood Pressure BP Systolic BP Diastolic Pulse Ox 99 11/10/22 14:01 11/10/22 14:01 Temperature Pulse Rate 91 Blood Pressure 118/84 H BP Systolic 118 BP Diastolic 84 Pulse Ox Weight Weight: 150 lb 6.4 oz Body Mass Index (BMI) 26.6 Physical Exam Const alert, oriented x3, no apparent distress and healthy appearing General Appearance: cooperative; Negative for anxious HEENT normocephalic Face and Sinus: normal facial exam Eyes EOMs intact bilaterally and no scleral icterus General Eye: normal appearance of both eyes Neck full ROM and supple Lymph Lymphatic: no lymphadenopathy noted Chest Chest: abnormal inspection of the chest Resp normal respiratory effort Effort and Inspection: able to speak in complete sentences Cardio regular rate GI soft to palpation and non-tender Inspection: gravid Palpation: soft; Negative for tender external exam normal Amniotic Fluid: ROM+plus Back/Spine no CVA tenderness Extremity normal to inspection, full ROM and no clubbing, cyanosis or edema General Extremity: Negative for calf tenderness or edema Skin Lesions: no lesions Rashes: no rashes Psych mental status grossly normal Labs Labs Labs: Blood Type O POSITIVE Antibody Screen NEGATIVE Hct 34.3 % (37-47) L Hgb 12.4 g/dL (12.0-15.0) Syphilis Total Ab Non-reactive Rubella IgG Antibody Reactive (Nonreactive) Hep Bs Antigen Non-Reactive (Nonreactive) Chlamydia DNA (TRACY) Negative (Negative) Neisseria gonorrhoeae DNA (TRACY) Negative (Negative) HIV 1&2 Antibody Nonreactive (Nonreactive) Glucose 1 Hr 50 gm 83 mg/dL (70-140) Assessment & Plan (1) Post-dates : (2) History of miscarriage: (3) : QUALIFIERS: Weeks of gestation: 40 weeks Qualified Code(s): Z3A.40 - 40 weeks gestation of COMMENT: GBS neg, anatomy nl (4) Supervision of normal : QUALIFIERS: Normal : other normal Trimester: third trimester Qualified Code(s): Z34.83 - Encounter for supervision of other normal , third trimester COMMENT: KENDALL 10/25/22 Boy. Boyfriend Kelvin PLAN: Plan Patient presents IOL, plan management for with pitocin/AROM. -membranes ruptured artificially and clear fluid returned Pain management: will need anesthesia consult for h/o spinal fusion surgery. GBS negative. Management of any complications: none [facility] and made any clinically relevant updates.
[2022-11-10] MEDS: LACTATED RINGERS 500 ML 999 ML IV ×3 (17:06→19:55)
[2022-11-10] MEDS: fentaNYL 100 MCG/2 ML Ampul IV (18:10)
[2022-11-10] MEDS: Ondansetron 4 MG/2 ML Vial IV (18:25)
[2022-11-10] MEDS: fentaNYL-bupivacaine (epidural) 100 ML BAG EPIDURAL ×2 (18:28→23:37)
[2022-11-10] MEDS: proCHLORPERazine 10 MG/2 ML Vial IV (19:43)
[2022-11-10] MEDS: Terbutaline 1 MG/ML Vial 0.25 MG SC (20:51)
[2022-11-10] MEDS: Ketorolac 30 MG/ML Syringe IV (21:07)
[2022-11-10] MEDS: Lactated Ringers 1,000 ML 200 ML IV (22:46)
[2022-11-10] MEDS: Oxytocin 15 Units/NS 250ml 15 UNITS/250 ML IV.SOLN 83 UNITS IV (23:54)
[2022-11-10] MEDS: Oxytocin 10 UNITS/ML Vial IM (23:55)
[2022-11-11] VITALS (27 sets, daily range): BP systolic 97–127; BP diastolic 62–77; PULSE 73–129; RESP 14–16; TEMP 36.5–37.6; O2SAT 96–98
--- NOTE | 2022-11-11 00:10 | OP.PCM_ITS ---
Assessment & Plan (1) Post-dates : (2) History of miscarriage: (3) : QUALIFIERS: Weeks of gestation: 40 weeks Qualified Code(s): Z3A.40 - 40 weeks gestation of COMMENT: GBS neg, anatomy nl (4) Supervision of normal : QUALIFIERS: Normal : other normal Trimester: third trimester Qualified Code(s): Z34.83 - Encounter for supervision of other normal , third trimester COMMENT: KENDALL 10/25/22 [place]oo [place] Maternal Data Information KENDALL Calculator Estimated Delivery Date Method Current WG Current Estimate 11/02/22 Ultrasound #1 41w 2d Other Estimates 10/25/22 LMP (Uncertain) 42w 3d Final KENDALL: 11/02/22 Final KENDALL Source: US <20 weeks Vaginal Delivery Maternal Presentation Maternal Presentation: Medically Indicated Induction Type of Induction: Amniotomy Operative Information Date of Procedure: 11/11/22 Pre-Operative Diagnosis: 22 y/o @ 41 weeks 2 days, post dates Post-Operative Diagnosis: 22 y/o @ 41 weeks 2 days, post dates Surgery / Procedure Performed: Spontaneous Vaginal Delivery Type of Anesthesia: Epidural Anesthesiologist: Chase Ash Drain: [place] to straight drain Estimated Blood Loss: 300cc Time of Delivery: 23:51 Findings Description of Procedure: Patient began pushing and delivered the head in the ROSALIO presentation. The head was delivered atraumatically . The anterior and posterior shoulders delivered without complication followed by the rest of the infant and the was placed on the maternal abdomen. Delayed cord clamping was employed for approximately 60 seconds. Cord was clamped and cut and gentle traction was applied to the cord and the placenta delivered spontaneously immediately following it was noted to be intact with three-vessel cord. The perineum and vagina were inspected and noted to have no laceration. There were bleeding bilateral periurethral tears that were repaired using a 3-0 vicryl suture EBL was [100 cc]. Patient and infant tolerated delivery well. Presentation: Vertex Amniotic Fluid Description: Clear Cord Vessel Description: 3 Vessels Cord Entanglement: None A Gender: Male (1 minute): 9 (5 minute): 1 Delayed Cord Clamping: Yes Post Vaginal Delivery Medications Given After Delivery: IV Pitocin and IM Pitocin Episiotomy Description: None Laceration: Vaginal Extension/lac (bilateral periurethral tears ) Complication Complications: None Multi Select Codes Urinary/Genital Urinary/Genital CPT Codes: 83529 Vaginal Delivery [facility]
--- NOTE | 2022-11-11 00:14 | PCM.DC ---
Discharge Instructions Diet Discharge Diet: No restrictions Activity Discharge Activity: Return to Normal Activity, May Not Drive (while taking narcotic pain medications.) and May Shower May resume sexual activity in: 4-6 weeks Dressing / Incision Call your doctor if your incision/area has: Continuous Slow Oozing, Sudden Increased Bleeding, Increased Pain/ Swelling, Increased Redness and Foul Smelling Discharge Follow Up Care Please Follow Up With: Shruthi Houston, DO When: Call [phone] to make an appointment with your doctor in 6 weeks. If you had elevated blood pressure or 4th degree laceration, you will need to be seen in 2 weeks. Test Results: Test results from this visit will be discussed in further detail at your follow-up appointment, if applicable. Discharge Plan Admission Admit Date/Time: 11/10/22 11:34 Attending Provider: Shruthi Houston Primary Care Provider: Isabella Hernandez NP Discharge Orders/Prescriptions Prescriptions: No Action prenat.vits,winter,[id number] Tablet 1 tab PO DAILY Referrals / Follow Up: Isabella Hernandez NP, INJECTION MOLDING MACHINE TENDER-C [Primary Care Provider] -
--- NOTE | 2022-11-11 07:20 | PN.OBGYN_ITS ---
Subjective Subjective Patient doing well without complaints. Tolerating PO. Ambulating and voiding without difficulty. feeding well. Denies chest pain, shortness of breath, calf pain/swelling, fevers, chills, lightheadedness. Objective Data Objective Data Vital Signs: Vital Signs Temp Pulse Resp BP Pulse Ox O2 Del Method 97.7 F L 97 16 97/70 98 Room Air 11/11/22 05:49 11/11/22 05:49 11/11/22 05:49 11/11/22 05:49 11/11/22 01:50 11/11/22 05:49 Oxygen Delivery Method Room Air Weight: 150 lb 6.4 oz Body Mass Index (BMI) 26.6 Intake & Output: Intake and Output for Last 24 Hours 11/09/22 11/10/22 11/11/22 23:59 23:59 23:59 Intake Total 2719.44 / 2719.44 247.23 / 247.23 Output Total 250 / 250 500 / 500 Balance 2469.44 / 2469.44 -252.77 / -252.77 Lab / Micro Data 11/10/22 12:25 Labs: Laboratory Results - last 24 hr 11/10/22 12:25: WBC 7.5, RBC 3.76 L, Hgb 12.4, Hct 34.3 L, MCV 91.2, MCH 33.0 H, MCHC 36.2 H, RDW Std Deviation 42.5, RDW Coeff of [place] 13.1, Plt Count 266, MPV 9.5, Immature Gran % (Auto) 0.500, Neut % (Auto) 74.1 H, Lymph % (Auto) 16.7 L, [place] % (Auto) 8.0, Eos % (Auto) 0.3, Baso % (Auto) 0.4, Absolute Neuts (auto) 5. 6, Absolute Lymphs (auto) 1.26, Nucleated RBC % 0, Syphilis Total Ab Non- reactive, Blood Type O POSITIVE, Antibody Screen NEGATIVE ROS Constitutional Constitutional: Reports systems reviewed and no addt'l complaints, except as documented Cardiovascular Cardiovascular: Reports systems reviewed and no addt'l complaints, except as documented Respiratory/Chest Respiratory/Chest: Reports systems reviewed and no addt'l complaints, except as documented Gastrointestinal Gastrointestinal: Reports systems reviewed and no addt'l complaints, except as documented Physical Exam Const alert, oriented x3 and no apparent distress HEENT Head and Scalp: atraumatic Resp normal respiratory effort GI soft to palpation and non-tender Bimanual Exam - Vag & Uterus: uterus non-tender Uterus Palpation: uterus fundus firm (below Umbilicus) Assessment & Plan (1) Vaginal delivery: COMMENT: ELAINE PLAN: Plan s/p PPD # 1 1. routine post delivery care 2. breast feeding- support given 3. rh positive 4. rubella immune
--- NOTE | 2022-11-11 14:22 | NURSING ---
This nursing agency manager reviewed the documentation completed by Kelton Ruelas, student nurse.
[2022-11-12] MEDS: Ibuprofen 600 MG Tablet PO (00:46)
[2022-11-12 01:09] VITALS: BP 115/70; PULSE 82; RESP 20; TEMP 37.1; O2SAT 98
[2022-11-12] MEDS: Acetaminophen 500 MG Tablet 1000 MG PO (07:47)
--- NOTE | 2022-11-12 08:25 | NURSING ---
Assisted student with AM assessment. Reviewed and agree with charting-Nancy GIL instructor
--- NOTE | 2022-11-12 09:23 | PCM.PN.OB ---
Subjective Subjective Patient doing well without complaints. Tolerating PO. Ambulating and voiding without difficulty. feeding well. Denies chest pain, shortness of breath, calf pain/swelling, fevers, chills, lightheadedness. Objective Data Objective Data Vital Signs: Vital Signs Temp Pulse Resp BP Pulse Ox O2 Del Method 98.8 F 82 20 H 115/70 98 Room Air 11/12/22 01:11/12/22 01:11/12/22 01:11/12/22 01:11/12/22 01:11/12/22 01:09 Oxygen Delivery Method Room Air Weight: 150 lb 6.4 oz Body Mass Index (BMI) 26.6 Intake & Output: Intake and Output for Last 24 Hours 11/10/22 11/11/22 11/12/22 23:59 23:59 23:59 Intake Total 2719.44 / 2719.44 247.23 / 247.23 Output Total 250 / 250 800 / 800 Balance 2469.44 / 2469.44 -552.77 / -552.77 Lab / Micro Data 11/10/22 12:25 ROS Constitutional Constitutional: Reports systems reviewed and no addt'l complaints, except as documented Cardiovascular Cardiovascular: Reports systems reviewed and no addt'l complaints, except as documented Respiratory/Chest Respiratory/Chest: Reports systems reviewed and no addt'l complaints, except as documented Gastrointestinal Gastrointestinal: Reports systems reviewed and no addt'l complaints, except as documented Physical Exam Const alert, oriented x3 and no apparent distress HEENT Head and Scalp: atraumatic Resp normal respiratory effort GI soft to palpation and non-tender Bimanual Exam - Vag & Uterus: uterus non-tender Uterus Palpation: uterus fundus firm (below Umbilicus) Assessment & Plan (1) Vaginal delivery: COMMENT: ELAINE PLAN: Plan s/p PPD # 2 1. routine post delivery care 2. breast feeding- support given 3. rh positive 4. rubella immune
[2022-11-12 10:00] VITALS: BP 110/70; PULSE 83; RESP 16; TEMP 36.6; O2SAT 98
== END 2022-11-12 13:40 | disposition home or self-care (01) | DRG 807 ==
PROVIDERS: Admitting Provider Obstetrics & Gynecology; PCP Registered Nurse; Visit Provider Obstetrics & Gynecology
DX: O48.0 Post-term pregnancy (principal); Z37.0 Single live birth; O71.82 Other specified trauma to perineum and vulva; Z3A.41 41 weeks gestation of pregnancy; Z98.1 Arthrodesis status; Z87.59 Personal history of other complications of pregnancy, childbirth and the puerperium
CPT/HCPCS: 59025; 59050; 85025; 86780; 86850; 86900; 86901; 99221; J7120; G0378; J2405

== ENCOUNTER → 2024-11-16 | Outpatient (CLI) | payer OTHER, SELFPAY ==
--- OUTSIDE RECORDS SUMMARY | 2024-11-16 20:31 | XMS RPT_ITS | CCD ---
Author Organization [facility] Care Team Providers Care Learning Consultant Name Role Phone KARL FUENTES Unavailable Unavailable SALUAN, KARL Pretty Unavailable Unavailable SALUAN, KARL M Unavailable Unavailable SALUAN, KARL M Unavailable Unavailable Haagen CHIROPRACTIC CARE.ROTARY SOIL STABILIZER OPERATOR, Isabella Primary Care Provider U navailable HAAGEN, ISABELLA Primary Care Unavailable HAAGEN, ISABELLA Primary Care Unavailable Haagen BLACKENER, BLACKENER-C Isabella Primary Care Provider Haagen BLACKENER, BLACKENER-C Isabella Referring Provider Dr. Shruthi Houston Attending Provider [phone] SHRUTHI BURGOS Referring Unavailab le ISABELLA HERNANDEZ L Primary Care Unavailable ADDISON KHAN Attending Unavailable Haagen BLACKENER, BLACKENER-C Isabella Primary Care Provider Haagen BLACKENER, BLACKENER-C Isabella Referring Provider Dr. Shruthi Houston Attending Provider [phone] SHARI Richard Attending Provider [phone] SHARI Barrera Attending Provider [phone] Haagen BLACKENER, BLACKENER-C Isabella Primary Care Provider Haagen BLACKENER, BLACKENER-C Isabella Referring Provider Dr. Shruthi Houston Attending Provider [phone] SHARI Barrera Attending Provider [phone] Anitha BLACKENER, BLACKENER-C Alexandra Attending Provider [phone] Haagen CHIROPRACTIC CARE.CESIA, Isabella Primary Care Provider U navailable Haagen BLACKENER, Isabella Primary Care Unavailable Alexandra Welsh Attending Unavailable Haagen BLACKENER, Isabella Referring Unavailable Anitha, Alexandra Attending Unavailable Mary TERRELL, Isabella Referring Unavailable Mary BLACKENER, Isabella Primary Care Unavailable Medications Current Medications Medication Drug Class(es) Dates Sig (Normalized) Sig (Original) Prenat.Vits,Connor,Min -Iron-Folic (4 sources) Start: 03-10-2021 take 1 tablet by mouth once daily Prenat.Vits,Connor,Mi f-Vdih-Wcwxe Active 1 TABLET PO DAILY March 10, 2021 1:00am Start: 03-10-2021 take 1 tablet by marya th once daily Prenat.Vits,Connor,Wxa-Hyoo-Ceseb Active 1 TABLET PO DAILY March 10, 2021 12:00am promethazine hydrochloride 12.5 mg oral tablet (4 sources) Phenothiazine Start: 03-16-2022 take 12.5 mg by mouth every six hours Promethazine Active 12.5 MG PO EVERY 6 HOURS 60 March 16, 2022 1:00am Completed/Discontinued Medications Medication Drug Class(es) Dates Sig (Normalized) Sig (Original) Acetaminophen (1 source) acetaminophen (TYLENOL 8 HOUR ORAL) Take by mouth. 0 Active Comment on above: Take by mouth. acetaminophen 325 mg / oxyCODONE hydrochloride 5 mg oral tablet (4 sources) Opioid Agonist Start: 03-10-2021 End: 03-12-2022 take 1 tablet by mouth every four hours Oxycodone-Acetamin ophen (Percocet) 5-325 mg tablet Discontinued 1 TABLET PO Q4H 18 3 March 10, 2021 March 12, 2022 3:00pm diazePAM 5 mg oral tablet (4 sources) Benzodiazepine Start: 08-19-2015 End: 02-25-2021 take 5 mg by mouth every six hours as needed Diazepam Discontinued 5 MG PO EVERY 6 HOURS NEEDED August 19, 2015 12:00am February 25, 2021 4:58pm docusate sodium 100 mg oral capsule (4 sources) Start: 08-19-2015 End: 02-25-2021 take 1 capsule by mouth twice daily Docusate Sodium (Colace) 100 MG capsule Discontinued 100 MG PO TWICE A DAY August 19, 2015 12:00am February 25, 2021 4:58pm ferrous sulfate 325 mg oral tablet (4 sources) Start: 08-19-2015 End: 02-25-2021 take 325 mg by mouth twice daily at mealtime Ferrous Sulfate Discontinued 325 MG PO TWICE DAILY WITH MEALS August 19, 2015 12:00am February 25, 2021 4:58pm ibuprofen 800 mg oral tablet (4 sources) Nonsteroidal Anti-inflammatory Drug Start: 03-10-2021 End: 03-12-2022 take 800 mg by mouth every eight hours Ibuprofen Discontinued 800 MG PO Q8H 30 7 March 10, 2021 1:00am March 12, 2022 3:00pm naproxen 500 mg oral tablet (5 sources) Nonsteroidal Anti-inflammatory Drug Start: 08-19-2015 End: 02-25-2021 take 1 tablet by mouth every twelve hours as needed naproxen (NAPROSYN) 500 mg tablet Take 1 tablet by mouth twice daily as needed (for pain). for pain. Take with food. 60 tablet 01/21/2020 10/22/2020 Discontinued ondansetron 4 mg disintegrating oral tablet (4 sources) Serotonin-3 Receptor Antagonist Start: 08-19-2015 End: 02-25-2021 take 4 mg by mouth once daily as needed Ondansetron Discontinued 4 MG PO DAILY NEEDED August 19, 2015 12:00am February 25, 2021 4:58pm oxyCODONE hydrochloride 5 mg oral tablet (4 sources) Opioid Agonist Start: 08-19-2015 End: 02-25-2021 take 5 mg by mouth every six hours as needed Oxycodone Discontinued 5 MG PO EVERY 6 HOURS NEEDED August 19, 2015 12:00am February 25, 2021 4:58pm sennosides, longterm 8.6 mg oral tablet (4 sources) Start: 08-19-2015 End: 02-25-2021 take 1 tablet by mouth once daily Sennosides (Senokot) 1 TABLET tablet Discontinued 1 TABLET PO DAILY August 19, 2015 12:00am February 25, 2021 4:58pm Problems Active Problems Problem Classification Problem Date Documented Da te Episodic/Chronic Hemorrhage during ; abruptio placenta; placenta previa (6 sources) Threatened miscarriage; Translations: [Threatened ] 03-10-2021 Episodic Other acquired deformities (2 sources) Scoliosis deformity of spine; Translations: [Scoliosis, unspecified] Onset: 08-14-2015 08-14-2015 Chronic Other bone disease and musculoskeletal deformities (2 sources) Adolescent idiopathic scoliosis of thoracolumbar spine; Translations: [Adolescent idiopathic scoliosis, thoracolumbar region] Onset: 03-21-2015 03-21-2015 Chronic Other complications of (4 sources) Missed miscarriage; Translations: [Missed ] 03-09-2022 Episodic Other and delivery including normal (20 sources) Normal ; Translations: [Encounter for supervision of normal first , unspecified trimester] 03-10-2021 Episodic Other upper respiratory infections (2 sources) Sore throat symptom; Translations: [Acute pharyngitis, unspecified] Episodic Residual codes; unclassified (2 sources) Orthopedic hardware in situ; Translations: [Presence of functional implant, unspecified] Onset: 09-01-2016 09-01-2016 Chronic Residual codes; unclassified (4 sources) H/O: miscarriage; Translations: [Personal history of other complications of , childbirth and the puerperium] 03-12-2022 Episodic Residual codes; unclassified (20 sources) Personal history of other complications of , childbirth and the puerperium; Translations: [Personal history of other genital system and obstetric disorders] 03-12-2022 Episodic Residual codes; unclassified (1 source) Pain; Translations: [Pain, unspecified] 10-13-2020 Episodic Unclassified (1 source) Presence of functional implant, unspecified; Translations: [Presence of functional implant, unspecified] Onset: 09-21-2016 Chronic Past or Other Problems Problem Classification Problem Date Documented Date Episodic/Chronic Complication of device; implant or graft (3 sources) Rupture of anterior cruciate ligament; Translations: [Other specified complication of internal orthopedic prosthetic devices, implants and grafts, initial encounter] Onset: 09-23-2016 03-08-2019 Episodic Joint disorders and dislocations; trauma-related (2 sources) Tear of medial meniscus of knee; Translations: [Tear of medial cartilage or meniscus of knee, current] Onset: 04-03-2013 04-03-2013 Episodic Other acquired deformities (2 sources) Deformity of knee joint; Translations: [Other specified acquired deformities of left lower leg] Onset: 06-03-2015 06-03-2015 Episodic Other acquired deformities (2 sources) Patricia legged; Translations: [Varus deformity, not elsewhere classified, unspecified knee] Onset: 09-01-2016 09-01-2016 Episodic Other acquired deformities (1 source) Acquired genu recurvatum; Translations: [Other specified acquired deformities of unspecified lower leg] Onset: 06-17-2014 Resolved: 11-18-2015 11-18-2015 Episodic Other connective tissue disease (2 sources) History of spinal fusion; Translations: [Arthrodesis status] Onset: 08-14-2015 2021 Episodic Other connective tissue disease (2 sources) Patellar tendonitis; Translations: [Patellar tendinitis, unspecified knee] Onset: 12-29-2015 12-29-2015 Episodic Other nervous system disorders (2 sources) Abnormal gait; Translations: [Unspecified abnormalities of gait and mobility] Onset: 05-21-2015 05-21-2015 Episodic Other nervous system disorders (1 source) Acute postoperative pain; Translations: [Other acute postprocedural pain] Onset: 08-14-2015 Resolved: 11-18-2015 11-18-2015 Episodic Other non-traumatic joint disorders (2 sources) Pain in left knee; Translations: [Pain in joint, lower leg] Onset: 12-29-2015 12-29-2015 Episodic Other non-traumatic joint disorders (2 sources) Instability of joint of left knee; Translations: [Other instability, left knee] Onset: 03-08-2019 03-08-2019 Episodic Other non-traumatic joint disorders (1 source) Pain in lower limb; Translations: [Pain in unspecified knee] Onset: 12-17-2011 Resolved: 11-18-2015 11-18-2015 Episodic Rheumatoid arthritis and related disease (1 source) Arthritis; Translations: [Juvenile arthritis, unspecified, unspecified site] Onset: 05-09-2015 Resolved: 09-13-2016 09-13-2016 Chronic Sprains and strains (3 sources) Sprain of anterior cruciate ligament of left knee, initial encounter; Translations: [Sprain of cruciate ligament of knee] Onset: 12-17-2011 12-17-2011 Episodic Results Test Name Value Interpretation Reference Range Facility Laboratory - Chemistry and C hemistry - challengeon 11-03-2022 Glucose Ql (U) Negative [facility] Laboratory - Urinalysison Protein Ql (U) Negative [facility] Laboratory - Chemistry and C hemistry - challengeon 10-28-2022 Glucose Ql (U) Negative [facility] Laboratory - Urinalysison Protein Ql (U) Negative [facility] Laboratory - Chemistry and C hemistry - challengeon 10-22-2022 Glucose Ql (U) Negative [facility] Laboratory - Urinalysison Protein Ql (U) Negative [facility] Laboratory - Chemistry and C hemistry - challengeon 10-07-2022 Glucose Ql (U) Negative [facility] Laboratory - Urinalysison Protein Ql (U) Negative [facility] No Panel InformationOrdered By: Shruthi Agrueta on 10-07-2022 Group B Streptococcus Culture Group B Beta Streptococcus is not isolated. [facility] Laboratory - Chemistry and C hemistry - challengeon 09-23-2022 Glucose Ql (U) Negative [facility] Laboratory - Urinalysison Protein Ql (U) Negative [facility] Laboratory - Chemistry and C hemistry - challengeon 09-06-2022 Glucose Ql (U) Negative [facility] Laboratory - Urinalysison Protein Ql (U) Negative [facility] Laboratory - Chemistry and C hemistry - challengeon 08-19-2022 Glucose Ql (U) Negative [facility] Laboratory - Urinalysison Protein Ql (U) Negative [facility] Absolute lymphocyte countOrd ered By: Dr. Argueta on 08-04-2022 Lymphocytes Auto (Unsp spec) [#/Vol] 1.41 10*3/uL 0.83-4.51 [facility] Basophil percentageOrdered B y: Dr. Argueta on 08-04-2022 Basophils/100 WBC (Bld) 0.5 % 0-1 [facility] Eosinophils/100 WBC (Bld) 0.4 % 0-5 [facility] Neutrophils (Bld) [#/Vol] 5.5 10*3/uL 2.0-7.7 [facility] Neutrophils/100 WBC (Bld) 72.0 % 47-70 [facility] WBC (Bld) [#/Vol] 7.7 10*3/uL 4.4-11.0 [facility] Blood erythrocytes count (nu mber/volume)Ordered By: Dr. Argueta on 08-04-2022 RBC (Bld) [#/Vol] 3.72 10*6/uL 4.2-5.4 [facility] Blood hemoglobin measurement (mass/volume)Ordered By: Dr. Argueta on 08-04-2022 Hemoglobin (Bld) [Mass/Vol] 12.1 g/dL 12.0-15.0 [facility] Blood lymphocytes/100 leukoc ytesOrdered By: Dr. Argueta on 08-04-2022 Lymphocytes/100 WBC (Bld) 18.3 % 19-41 [facility] Blood monocytes/100 leukocyt esOrdered By: Dr. Argueta on 08-04-2022 Monocytes/100 WBC (Bld) 7.9 % 0-10 [facility] Blood platelet mean volumeOr dered By: Dr. Argueta on 08-04-2022 Platelet mean volume (Bld) [Entitic vol] 9.6 fL 6.2-12.0 [facility] Determination of erythrocyte mean corpuscular volume (MCV)Ordered By: Dr. Argueta on 08-04-2022 MCV (RBC) [Entitic vol] 95.7 fL 81-99 [facility] Gestational diabetes screen 1-hour screen with 50g oral glucose loadOrdered By: Dr. Argueta on 08-04-2022 Glucose 1 Hr post 50 g glucose PO [Mass/Vol] 83 mg/dL 70-140 [facility] HIV 1 and HIV-2 antibody ass ay with HIV-1 p24 antigen detectionOrdered By: Dr. Argueta on 08-04-2022 HIV 1+2 Ab+HIV1 p24 Ag IA Ql Non-Reactive Nonreactive [facility] Hematocrit Auto (Bld) [Volum e fraction]Ordered By: Dr. Argueta on 08-04-2022 Hematocrit (Bld) [Volume fraction] 35.6 % 37-47 [facility] Laboratory - Hematology and Cell countsOrdered By: Dr. Argueta on 08-04-2022 Erythrocyte distribution width (RBC) [Entitic vol] 45.6 fL 35.1-43.9 [facility] Erythrocyte distribution width (RBC) [Ratio] 13.0 % 11.6-14.6 [facility] Immature granulocytes/100 WBC (Bld) 0.900 % 0.0-0.9 [facility] Comment on above: IG% - Immature Granu locytes (promyelocytes, myelocytes and metamyelocytes) > 1% indicates that a LEFT SHIFT is Present. MCH (RBC) [Entitic mass] 32.5 pg 27.0-32.0 [facility] Nucleated RBC/100 WBC (Bld) [Ratio] 0 % 0-5 [facility] MCHC Auto (RBC) [Mass/Vol]Or dered By: Dr. Argueta on 08-04-2022 MCHC (RBC) [Mass/Vol] 34.0 g/dL 32-36 [facility] Platelets bldOrdered By: Dr. Argueta on 08-04-2022 Platelets (Bld) [#/Vol] 277 10*3/uL 150-450 [facility] Serum Treponema species anti body detectionOrdered By: Dr. Argueta on 08-04-2022 Treponema sp Ab Ql (S) Non-Reactive [facility] Laboratory - Chemistry and C hemistry - challengeon 07-23-2022 Glucose Ql (U) Negative [facility] Laboratory - Urinalysison Protein Ql (U) Negative [facility] Laboratory - Chemistry and C hemistry - challengeon 06-08-2022 Glucose Ql (U) Negative [facility] Laboratory - Urinalysison Protein Ql (U) Negative [facility] Laboratory - Chemistry and C hemistry - challengeon 05-12-2022 Glucose Ql (U) Negative [facility] Laboratory - Urinalysison Protein Ql (U) Negative [facility] Absolute lymphocyte countOrd ered By: Dr. Argueta on 04-16-2022 Lymphocytes Auto (Unsp spec) [#/Vol] 1.46 10*3/uL 0.83-4.51 [facility] Basophil percentageOrdered B y: Dr. Argueta on 04-16-2022 Basophils/100 WBC (Bld) 0.4 % 0-1 [facility] Eosinophils/100 WBC (Bld) 0.4 % 0-5 [facility] Neutrophils (Bld) [#/Vol] 5.5 10*3/uL 2.0-7.7 [facility] Neutrophils/100 WBC (Bld) 72.1 % 47-70 [facility] WBC (Bld) [#/Vol] 7.6 10*3/uL 4.4-11.0 [facility] Blood erythrocytes count (nu mber/volume)Ordered By: Dr. Argueta on 04-16-2022 RBC (Bld) [#/Vol] 4.17 10*6/uL 4.2-5.4 [facility] Blood hemoglobin measurement (mass/volume)Ordered By: Dr. Argueta on 04-16-2022 Hemoglobin (Bld) [Mass/Vol] 13.6 g/dL 12.0-15.0 [facility] Blood lymphocytes/100 leukoc ytesOrdered By: Dr. Argueta on 04-16-2022 Lymphocytes/100 WBC (Bld) 19.1 % 19-41 [facility] Blood monocytes/100 leukocyt esOrdered By: Dr. Argueta on 04-16-2022 Monocytes/100 WBC (Bld) 7.7 % 0-10 [facility] Blood platelet mean volumeOr dered By: Dr. Argueta on 04-16-2022 Platelet mean volume (Bld) [Entitic vol] 9.3 fL 6.2-12.0 [facility] Determination of erythrocyte mean corpuscular volume (MCV)Ordered By: Dr. Argueta on 04-16-2022 MCV (RBC) [Entitic vol] 92.3 fL 81-99 [facility] HIV 1 and HIV-2 antibody ass ay with HIV-1 p24 antigen detectionOrdered By: Dr. Argueta on 04-16-2022 HIV 1+2 Ab+HIV1 p24 Ag IA Ql Non-Reactive Nonreactive [facility] Hematocrit Auto (Bld) [Volum e fraction]Ordered By: Dr. Argueta on 04-16-2022 Hematocrit (Bld) [Volume fraction] 38.5 % 37-47 [facility] Laboratory - Chemistry and C hemistry - challengeon 04-16-2022 Glucose Ql (U) Negative [facility] Laboratory - Hematology and Cell countsOrdered By: Dr. Argueta on 04-16-2022 Erythrocyte distribution width (RBC) [Entitic vol] 43.2 fL 35.1-43.9 [facility] Erythrocyte distribution width (RBC) [Ratio] 12.8 % 11.6-14.6 [facility] Immature granulocytes/100 WBC (Bld) 0.300 % 0.0-0.9 [facility] Comment on above: IG% - Immature Granu locytes (promyelocytes, myelocytes and metamyelocytes) > 1% indicates that a LEFT SHIFT is Present. MCH (RBC) [Entitic mass] 32.6 pg 27.0-32.0 [facility] Nucleated RBC/100 WBC (Bld) [Ratio] 0 % 0-5 [facility] Laboratory - Urinalysison Protein Ql (U) Negative [facility] MCHC Auto (RBC) [Mass/Vol]Or dered By: Dr. Argueta on 04-16-2022 MCHC (RBC) [Mass/Vol] 35.3 g/dL 32-36 [facility] No Panel InformationOrdered By: Dr. Argueta on 04-16-2022 Hepatitis B Surface Antigen Non-Reactive Nonreactive [facility] Hepatitis C Antibody Non-Reactive Nonreactive [facility] Comment on above: Non Reactive: < 0.8 Equivocal: >/= 0.8 to < 1.0 Reactive: >/= 1.0The CDC recommends that a reactive/equivocal HCV antibody result be followed up by the HCV Nucleic Acid Amplificationtest (184701) Rubella IgG Antibody Reactive Nonreactive [facility] Comment on above: Antibody Results Int erpretation of Immune Status Non Reactive Presumed Non-Immune Equivocal Equivocal Reactive Presumed Immune Platelets bldOrdered By: Dr. Argueta on 04-16-2022 Platelets (Bld) [#/Vol] 297 10*3/uL 150-450 [facility] Serum Treponema species anti body detectionOrdered By: Dr. Argueta on 04-16-2022 Treponema sp Ab Ql (S) Non-Reactive [facility] CNOVon 03-15-2022 CNOV Office Visit (UCWSTR ) -------- PAN BERG ([id number]) 1 F Date Time Provider Department 03/15/22 11:45 AM [facility] URRUT[facility] During your visit today, we recorded the following information about you: Temperature Pulse Respiration Blood pressure 98.5 degrees 77/minute 18/minute 110/62 Weight Last Period 55.7 kg 01/14/22 Garrick Urrutia MD 03/15/2022 12:05 PM Signed Patient presents with: Sore Throat: Congestion, ALCANTAR x2 days HPI: Feeling sick since yesterday Positive symptoms: Sore throat, Nasal Congestion, Rhinorrhea, Headache, Negative symptoms: Cough, Fever, Nausea, Vomiting, Diarrhea, OTC: honey-garlic Currently . Mother is undergoing Chemo. MEDICATIONS: Current Outpatient Medications Medication Sig acetaminophen (TYLENOL 8 HOUR ORAL) Take by mouth. (Patient not taking: Reported on 03/15/2022) No current facility-administered medications for this visit. ALLERGIES: ALLERGIES No Known Allergies VITALS: BP 110/62 Pulse 77 Temp 36.9 ?C (98.5 ?F) Resp 18 Wt 55.7 kg (122 lb 12.8 oz) LMP 01/14/2022 (Within Days) SpO2 99% BMI 21.75 kg/m? PHYSICAL EXAM: GEN: mildly ill appearing HEENT: PERRL, EOMI, conjunctiva clear Ears: canals clear. TMs without erythema, bulge, or effusion Nose: sniffing drainage Throat: moist mucous membranes, mild erythema, no exudate Neck: supple, no thyromegaly, no lymphadenopathy HEART: regular rate and rhythm, no murmurs LUNGS: clear to auscultation, no wheezes or crackles, no increased WOB ASSESSMENT/PLAN: 1. Sore throat - ICD9: 462, ICD10: J02.9 (primary diagnosis) 2. URI, acute - ICD9: 465.9, ICD10: J06.9 - STREP A MOLECULAR (POC) - negative. - suspect viral URI, differential includes COVID-19 and influenza. - Discussed supportive care treatment with home isolation, rest, cold medicine, and analgesia. - Red flags to seek further treatment include chest pain, shortness of breath, and lethargy; in the ER if severe. - COVID WITH FLUA+B, ROUTINE - recommended considering tamiflu after discussion with PRESS BRAKE OPERATOR if positive for influenza. Garrick Urrutia MD Allergies As of Date: 03/15/2022 (No Known Allergies) Date Reviewed: 03/15/2022 Reviewed by: Samantha Rosales MA - Fully Assessed Reason for Visit: Sore Throat [200] Cmt: Congestion, ALCANTAR x2 days Primary Visit Diagnosis:Sore throat [J02.9] Other Visit Diagnosis:URI, acute [J06.9] Order(s):STREP A MOLECULAR (POC) [8703671] Order #: [id number]. #:[id number] COVID WITH FLUA+B, ROUTINE [SQCOVFLU] Order #: [id number] FUTURE COVID WITH FLUA+B, ROUTINE [SQCOVFLU] Order #: [id number]. #:[id number] Prescriptions as of 03/15/2022 - acetaminophen (TYLENOL 8 HOUR ORAL) Take by mouth. Meds Comments as of 03/21/2015: No meds. 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] 06/03/2015 Scoliosis [M41.9] 08/14/2015 S/P spinal fusion [Z98.1] 08/14/2015 Acute post-operative pain [G89.18] 08/14/2015 11/18/2015 Patellar tendinitis [M76.50] 12/29/2015 Left knee pain [M25.562] 12/29/2015 S/P ACL reconstruction [Z98.890] 02/23/2016 Retained orthopedic hardware [Z96.9] 09/01/2016 Genu varum [M21.169] 09/01/2016 Tear of anterior cruciate ligament graft (HCC) *09/23/2016 S/P ACL surgery [Z98.890] 02/21/2017 Knee instability, left [M25.362] 03/08/2019 Painful orthopaedic hardware (HCC) [T84.84XA] 10/22/2020 Letter Text Encounter Status:Closed by GARRICK URRUTIA on 03/15/22 Normal [facility] STREP A MOLECULAR (POC)on Procedural Control Valid [facility] Strep A (POCT) Negative Negative [facility] Culture, urineOrdered By: Dr Tala Argueta on 03-14-2022 Bacteria identified Cx Nom (U) Culture exhibits no growth. [facility] Chlamydia trachomatis rRNA d etection by probe and target amplification methodOrdered By: Dr. Argueta on 03-12-2022 C. trachomatis rRNA TRACY+probe Ql (Unsp spec) Negative Negative [facility] Laboratory - Microbiology an d Antimicrobial susceptibilityOrdered By: Dr. Argueta on 03-12-2022 N. gonorrhoeae DNA TRACY+probe Ql (Unsp spec) Negative Negative [facility] Comment on above: Performed at: =G - [address] [id number] Director: Maira Man MD, Phone: [phone] Aneesh 03-23-2021 CN Office Visit (UCWSTR ) -------- PAN BERG ([id number]) 1 F Date Time Provider Department 03/23/21 2:30 PM JAIME WINTERS [facility] [[email or web address] During your visit today, we recorded the following information about you: Temperature Pulse Respiration Blood pressure 98.1 degrees 111/minute 16/minute 100/74 Weight Last Period 54.9 kg 12/19/20 Jaime Winters APRN.CESIA 03/23/2021 3:15 PM Signed Subjective HPI Nontoxic female presents urgent care chief plaint left ear pain. Duration of symptoms 2 days. Associated symptoms left ear pain nasal drainage and cough. Presents today for evaluation of ear pain. Denies any OTC medication use. Denies any known sick contacts. Did have COVID-19 in February of this year. Denies any fevers productive cough chest pain shortness of breath pleuritic pain hemoptysis nausea vomiting abdominal pain or change in bowel or bladder habits. Past medical history prescription medication use allergies reviewed. .Patient presents with: Ear Pain: pain rated 3 on pain scale, x2 days, denied fever, chills Follow Up: loss voice x1 day after cheeleading competition PAST MEDICAL HISTORY Diagnosis Date - ACL tear left - Scoliosis of thoracic spine PAST SURGICAL HISTORY Procedure Laterality Date - BACK SURGERY HX 2016 thoracic fusion - KNEE SURGERY HX Left 05/2015 tibial osteotomy - KNEE SURGERY HX Left 2011 ACL reconstruction - PAST SURGICAL HISTORY OF 02/2020 ACL reonstruction ALLERGIES Patient has no known allergies. MEDICATIONS acetaminophen (TYLENOL 8 HOUR ORAL) Take by mouth. FAMILY HISTORY Problem Relation Age of Onset - other (heart problems) Maternal Grandfather - other (kidney problems) Maternal Grandfather paternal side - other (post-op bloot clot) Maternal Grandfather Social History Tobacco Use - Smoking status: Never Smoker - Smokeless tobacco: Never Used - Tobacco comment: Not Currently Vaping Use - Vaping Use: Never used Substance Use Topics - Alcohol use: No - Drug use: No BP 100/74 Pulse 111 Temp 36.7 ?C (98.1 ?F) (Temporal Artery) Resp 16 Wt 54.9 kg (121 lb) LMP 12/19/2020 SpO2 99% BMI 21.43 kg/m? Hr 83 Review of Systems Constitutional: Negative for chills, fever and malaise/fatigue. HENT: Positive for congestion and ear pain. Negative for ear discharge, sinus pain and sore throat. Eyes: Negative for blurred vision, pain, discharge and redness. Respiratory: Positive for cough. Negative for hemoptysis, sputum production, shortness of breath, wheezing and stridor. Cardiovascular: Negative for chest pain. Gastrointestinal: Negative for abdominal pain, diarrhea, nausea and vomiting. Musculoskeletal: Negative for myalgias. Skin: Negative for itching and rash. Neurological: Negative for dizziness and headaches. Objective Physical Exam Vitals and nursing note reviewed. Constitutional: General: She is not in acute distress. Appearance: She is not diaphoretic. HENT: Head: Normocephalic and atraumatic. Jaw: No trismus. Right Ear: Hearing, tympanic membrane, ear canal and external ear normal. No decreased hearing noted. No drainage, swelling or tenderness. No mastoid tenderness. Tympanic membrane is not perforated, erythematous or bulging. Left Ear: Hearing, tympanic membrane, ear canal and external ear normal. No decreased hearing noted. No drainage, swelling or tenderness. No mastoid tenderness. Tympanic membrane is not perforated, erythematous or bulging. Mouth/Throat: Lips: [place]. Pharynx: Uvula midline. No pharyngeal swelling, oropharyngeal exudate, posterior oropharyngeal erythema or uvula swelling. Eyes: General: Right eye: No discharge. Left eye: No discharge. Conjunctiva/sclera: Conjunctivae normal. Pupils: Pupils are equal, round, and reactive to light. Cardiovascular: Rate and Rhythm: Normal rate and regular rhythm. Heart sounds: Normal heart sounds. Pulmonary: Effort: Pulmonary effort is normal. No respiratory distress. Breath sounds: Normal breath sounds. No wheezing or rales. Chest: Chest wall: No tenderness. Abdominal: Palpations: Abdomen is soft. Tenderness: There is no abdominal tenderness. Musculoskeletal: General: No tenderness. Normal range of motion. Cervical back: Normal range of motion and neck supple. Lymphadenopathy: Head: Right side of head: No submental, submandibular, tonsillar, preauricular, posterior auricular or occipital adenopathy. Left side of head: No submental, submandibular, tonsillar, preauricular, posterior auricular or occipital adenopathy. Cervical: No cervical adenopathy. Right cervical: No superficial or posterior cervical adenopathy. Left cervical: No superficial or posterior cervical adenopathy. Skin: General: Skin is warm and dry. Findings: No rash. Neurological: Mental Status: She is alert and oriented to person, place, (more content not included)... Normal [facility] Perez XR Knee - left 4 Viewson * * *Final Report* * * DATE OF EXAM: Oct 13 2020 9:05AM STX 5202 - XR KNEE 4V AP/PA BOTH+LAT/GABY LT / PROCEDURE REASON: Pain * * * * Physician Interpretation * * * * Indication: Left knee pain Comparison: X-ray left knee 04/09/2019 AP, PA, lateral and merchant views of the left knee are obtained. AP, PA and merchant views of the right knee are included. Again noted are postoperative changes from left ACL repair. Unchanged appearance of hardware in the distal left femur and proximal left tibia. There is no acute fracture or dislocation. Joint spaces are maintained. Impression: 1. No acute fracture or dislocation. Public Relations Representative[facility] Transcribe Date/Time: Oct 13 2020 9:23A Dictated by : JANKI SEQUEIRA MD This examination was interpreted and the report reviewed and electronically signed by: JANKI SEQUEIRA MD on Oct 13 2020 9:25AM EST DIVISION OF RADIOLOGY Provider, [facility] - 10/13/2020 * * *Final Report* * * DATE OF EXAM: Oct 13 2020 9:05AM STX 5202 - XR KNEE 4V AP/PA BOTH+LAT/GABY LT / PROCEDURE REASON: Pain * * * * Physician Interpretation * * * * Indication: Left knee pain Comparison: X-ray left knee 04/09/2019 AP, PA, lateral and merchant views of the left knee are obtained. AP, PA and merchant views of the right knee are included. Again noted are postoperative changes from left ACL repair. Unchanged appearance of hardware in the distal left femur and proximal left tibia. There is no acute fracture or dislocation. Joint spaces are maintained. Impression: 1. No acute fracture or dislocation. Public Relations Representative: [facility] Transcribe Date/Time: Oct 13 2020 9:23A Dictated by : JANKI SEQUEIRA MD This examination was interpreted and the report reviewed and electronically signed by: JANKI SEQUEIRA MD on Oct 13 2020 9:25AM EST [facility] Radiology Study observation (narrative) Donaldo gage [facility] XR Knee - left 4 ViewsOrdere d By: [facility] Provider on 10-13-2020 [facility] HISTORY PHYSICALon 0 HISTORY PHYSICAL HNO ID: [id number] Author: Greer David (Sergei Reagan Service: ? Author Type: Nurse Practitioner Type: HANDP Filed: 03/08/2019 9:53 AM Note Text: HISTORY AND PHYSICAL EXAMINATION SERVICE DATE: 03/08/2019 SERVICE TIME: 9:26 AM PRIMARY CARE PHYSICIAN: Abilio Leon MD REASON FOR VISIT: Pan Berg is a 19 year old female who is scheduled for ARTHROSCOPY KNEE ANTERIOR CRUCIATE LIGAMENT REPAIR AUGMENTATION OR RECONSTRUCTION RECONSTRUCTION and KNEE LIGAMENTOUS EXTRA-ARTICULAR at the request of Karl Soria MD for consultation. My final recommendation will be communicated back to the requesting physician by way of shared medical record or letter. 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 She complains of left knee instability. Several months ago did a standing tuck in gymnastics re-injured her left knee. ? She has continued left knee instability including during activities of daily living such as walking. ? Has tried ACL brace with continued instability ? She has had multiple left knee surgeries ? Hx of [address] Fuentes with Semi T and gracilis autograft. Hx of 2015 left knee osteotomy with Dr Fuentes Left knee recurvatum deformity. Hx of [address] Fuentes Achilles 9mm allograft. ? She denies having any radicular pain, or numbness/tingling on the ipsilateral LE. PAST MEDICAL HISTORY Diagnosis Date - ACL tear left - Scoliosis of thoracic spine PAST SURGICAL HISTORY Procedure Laterality Date - BACK SURGERY HX 2016 thoracic fusion - KNEE SURGERY HX Left 05/2015 tibial osteotomy - KNEE SURGERY HX Left 2011 ACL reconstruction FAMILY HISTORY Problem Relation Age of Onset - other (heart problems) Maternal Grandfather - other (kidney problems) Maternal Grandfather paternal side - other (post-op bloot clot) Maternal Grandfather SOCIAL HISTORY: Social History Tobacco Use - Smoking status: Never Smoker - Smokeless tobacco: Never Used - Tobacco comment: Not Currently Substance Use Topics - Alcohol use: No - Drug use: No PEDIATRIC HISTORY Gestational age: wks Delivery method: weight: 2991 g (6 lb 9.5 oz) Discharge weight: 2778 g (6 lb 2 oz) Length: N/A HC: N/A Feeding method: MEDICATIONS: Prior to Admission medications as of 03/08/19 0925 Medication Sig Last Dose Taking naproxen (NAPROSYN) 500 mg tablet Take 1 tablet by mouth twice daily as needed. Take with food. naproxen (NAPROSYN) 375 mg tablet Take 375 mg by mouth twice daily with meals. Not Taking HYDROcodone-acetaminophe n (NORCO) 5-325 mg per tablet Take 1-2 tablets by mouth every 6 hours as needed. Patient not taking: Reported on 10/27/2016 Not Taking ondansetron (ZOFRAN) 4 mg tablet Take 1 tablet by mouth every 6 hours as needed for Nausea/Vomiting. Patient not taking: Reported on 02/12/2019 Not Taking HYDROcodone-acetaminophe n (NORCO) 5-325 mg per tablet Take 1-2 tablets by mouth every 6 hours as needed. Patient not taking: Reported on 10/27/2016 Not Taking Medication Comments documented by Socorro Mcgee Ma on 03/21/2015 at 0924. No meds. CURRENT ALLERGIES: ALLERGIES No Known Allergies REVIEW OF SYSTEMS: PAIN ASSESSMENT: General: No weight loss, malaise or fevers. Neuro: No Hx of stroke or seizures Respiratory: No history of current cough or dyspnea, or pneumonia in the past 6 weeks. No history of respiratory/pulmonary symptoms or problems Cardiovascular: No history of Congenital heart defects, no heart murmur/valvular heart disease, hypertension, hyperlipidemia, or open heart surgery. Denies rest pain, gangrene or revascularization/amputa tion for PVD. No history of cardiovascular symptoms or problems. GI: No history of GI symptoms or problems. No history of esophageal varices, recent ascites, or ETOH greater than 2 drinks per day. : No history of UTI in past 6 weeks. No history of renal failure. Not currently on or requiring dialysis. No history of symptoms or problems. PRESS BRAKE OPERATOR: Negative for abnormal vaginal bleeding, abnormal vaginal discharge. : Denies Endocrine: No history of diabetes. Has not taken steroids within the past 30 days. No history of endocrinological symptoms or problems. Hematology: No history of bleeding or clotting disorder. Pt is not taking anti-coagulation or platelet medications. No history of hematological symptoms or problems. Oncology: No history of CA metastasis, chemo within 30 days, or radiotherapy within 90 days. Has not lost 10% of body wt in 6 months. No history of oncological symptoms or problems. Psych: No history of psychiatric symptoms or problems. Musculoskeletal: See HPI +h/o scoliosis s/p thoracic fusion 2015 Skin: Negative for lesions, rash and itching. Objective PHYSICAL EXAM: VITALS: BP 109/61 Pulse 101 Temp (Src) 98 (Tympanic) Resp 16 Ht 5' 3" (1.60m) Wt 127 lb (57.6kg) SpO2 96% LMP 03/01/2019 BMI 22.50 kg/(m2). 51 %ile (Z= 0.02) based on [facility] (Girls, 2-20 Years) [id number]-[id number]-lat data using vitals from 03/08/2019. General: Alert and oriented Skin: Normal color, no rash, no lesions. HEENT: EOM, pupils equal, round and reactive. Cardiovascular: Normal S1 AND S2, no rubs, murmurs or gallops. No JVD. Pulse regular. Lungs: Normal breath sounds, no wheezes or crackles. Abdomen: Soft, non-tender, no rigidity. Extremities: No deformity, no edema or tenderness, no joint swelling or clubbing. Neurological: Normal cognition and motor skills. Pulses: Carotid and radial pulses normal +2. Diagnostic tests reviewed for today's visit: Lab Value Units Date High Low HB No results within date range. HCT No results within date range. WBC No results within date range. PLT No results within date range. NA No results within date range. K No results within date range. GLUC No results within date range. BUN No results within date range. CREAT No results within date range. PTSEC No results within date range. INR No results within date range. APTT No results within date range. ALT No results within date range. AST No results within date range. TBILI No results within date range. TSH No results within date range. Lab Value Units Date High Low HCGQT No results within date range. UHCG No results within date range. HCG, BODY* No results within date range. Lab Value Units Date High Low ABORHD No results within date range. ABSCREEN No results within date range. No results found for: HBA1C Most recent imaging Assessment/Plan Assessment: There is no known pertinent medical condition which may affect efrem-operative course METS: Climb a flight of stairs or walk up a hill (5.50 METs) Patient denies any chest pain or undue shortness of breath with the above physical activity. ASA Class: 1 ANESTHESIA FINDINGS: Intubation History: No history of difficult intubation Significant Anesthesia Considerations: None Airway Exam: General: Normal appearance Mallampati Score is CLASS I ULBT: Class I - Lower incisors can bite the upper lip above the kinza line Neck: Normal appearance and function, Distance from hyoid to mentum during neck extension is at least 3 finger breaths Mouth: Normal tongue size Dentition: Intact Airway History: No abnormal airway history STOP BANG Score: Criteria = Criteria: None Score = 0 This patient is optimally prepared for surgery pending LABS. PLAN CONSULTS: Patient does not require consults for optimization at this time. The Following Tests/Procedures Have Been Initiated: Orders Placed This Encounter >CBC + AUTO DIFF Standing Status: Future Number of Occurrences: 1 Standing Expiration Date: 03/07/2020 >BMP Standing Status: Future Number of Occurrences: 1 Standing Expiration Date: 03/07/2020 , EKG not indicated per [facility] protocol Planned Anesthetic: Per anesthesia choice Instructions Given to Parent/Guardian: Instructions located in the after visit summary. Patient given verbal and written preop instructions and voices comprehension and compliance. SIGNATURE: Greer Reagan APRN.CNP PATIENT NAME: Pan Berg DATE: March 08, 2019 TIME: 9:26 AM PAGER/CONTACT #: [facility] [place] ANES [place] 10-12-2016 ANES POST HNO ID: [id number]: Shelton Middleton: (none)Author Type: PhysicianType: Anesthesia PostOpFiled: 10/12/2016 7:55 PMNote Text:POST ANESTHESIA EVALUATION NOTESERVICE DATE: 10/12/2016SERVICE TIME: 19:55DOB: 2000Vitals: 08/29/111232 10/12/1718Temp: 37.1 ?C (98.7 ?F) 36.8 ?C (98.2 ?F) 37 ?C (98.6 ?F) 10/12/1718P: 112/66 110/66 (!) 115/48 105/65 10/12/1718Pulse: 79 94 105 81 10/12/1718Resp: 18 16 19 12 10/12/1718SpO2: 99% 96% 95% 99%Validated Vital Signs: YesPOST ANES STATUS: No apparent anesthetic complications. The patient isappropriately hydrated with stable respiratory and cardiovascular status.Patient has safe and adequate airway control. The patient has appropriatepain relief and no significant post operative nausea or vomiting. Thepatient has achieved baseline mental status.Further assessment by Anesthesia Service: NoneOther Remarks:SIGNATURE: Shelton Melchor MD PATIENT NAME: Pan BergDATE: October 12, 2016 : 7:55 PM PAGER/CONTACT #: [facility] ANES PREOPon 10-12-2016 ANES PREOP HNO ID: [id number]: Shelton MelchorService: (none)Author Type: PhysicianType: Anesthesia PreOpFiled: 10/12/2016 1:10 PMNote Text: ANESTHESIOLOGY DAY OF SURGERY NOTESERVICE DATE: 10/12/2016SERVICE TIME: 13:10DOB: 2000Procedure(s) (LRB):ARTHROSCOPIC REMOVAL LOOSE BODY KNEE (Left)ARTHROSCOPIC REPAIR LIGAMENT ANTERIOR CRUCIATE (Left)Surgeon(s):Karl FuentesEstimated body mass index is 21.8 kg/(m2) as calculated from thefollowing: Height as of 09/13/16: 162.6 cm (5' 4"). Weight as of 09/13/16: 57.6 kg (127 lb).Most recent hematocrit and potassium results:Hematocrit 44.0 09/13/2016Potassium 4.3 09/13/2016ANES DOS/PREOP NOTE:Vitals:There were no vitals filed for this visit.ACTIVE PROBLEM LISTSprain of Cruciate Ligament of KneeTear of Medial Cartilage Or Meniscus of Knee, CurrentAdolescent Idiopathic Scoliosis of Thoracolumbar RegionAbnormality of GaitGenu Recurvatum of Left KneeScoliosisS/P Spinal FusionPatellar TendinitisLeft Knee PainS/P Acl ReconstructionRetained Orthopedic HardwareGenu VarumLeft Acl TearPAST MEDICAL HISTORYDiagnosis Date- ACL tear left- Scoliosis of thoracic spinePAST SURGICAL HISTORYProcedure Laterality Date- BACK SURGERY HX 2016 thoracic fusion- KNEE SURGERY HX Left 05/2015 tibial osteotomy- KNEE SURGERY HX Left 2011 ACL reconstructionFAMILY HISTORYProblem Relation Age of Onset- heart problems [OTHER] Maternal Grandfather- kidney problems [OTHER] Maternal Grandfather paternal side- post-op bloot clot [OTHER] Maternal GrandfatherSocial History:Social HistorySubstance Use Topics- Smoking status: Never Smoker- Smokeless tobacco: Not on file Comment: Not Currently- Alcohol use NoNo current facility-administered medications on file prior to encounter.Current Outpatient Prescriptions on File Prior to Encounter:HYDROcodone-ac etaminophen (NORCO) 5-325 mg per tablet Take 1-2 tablets bymouth every 6 hours as needed.Current Facility-Administered Medications:lactated ringers infusion 30 mL/hr INTRAVENOUS CONTINUOUS Britney (Sincere)Frazier0.9% NaCl 2-10 mL 2-10 mL INTRAVENOUS q 12 H Britney Johnson) Frazierlidocaine 4 % topical cream (LMX) TOPICAL PRN Britney (Sincere) FrazierceFAZolin 2 g in dextrose (iso-osmotic) 100 mL (ANCEF, KEFZOL) 2 gINTRAVENOUS ONCE Britney Johnson) FrazierAllergies: ALLERGIESNo Known AllergiesDOS EXAM: Adequate NPO status: YesAnesthetic risks, benefits, alternatives, personnel and consent discussed:YesPatient agrees to proceed: YesPrevious Anesthesia: No history of adverse event.Airway Assessment: MP 2; Neck ROM: Full ROM without neurologic symptoms;Airway Evaluation: No significant abnormalitiesSymptoms of Sleep Apnea: NoneDentition: Teeth intactAdditional Physical Exam:Lungs: Patient health status unchanged since recent history and physical.See history and physical for exam findings.Cardiac: Patient health status unchanged since recent history andphysical. See history and physical for exam findings.Additional Pertinent Findings: N/ABlood Products: Not anticipated for this procedure.Anesthetic Plan: General, Standard ASA MonitorsPain Management Plan: Parenteral or Oral and Peripheral Nerve BlockASA Class: 1Other Medical Problems: NoneChronic Beta Becky medication administered within 24 hours: N/AI have interviewed and examined the patient. I have reviewed the medicalrecord and/or the pre-anesthesia evaluation, pertinent labs, and testresults.Significant changes in the patient's condition since the History andPhysical, not otherwise documented in primary service progress notes: NoThis contains updated information obtained within 48 hours ofSurgery/Procedure.SIGN ATURE: Shelton Melhcor MD PATIENT NAME: Pan Ching MartinDATE: October 12, 2016 : 1:10 PM CSN: [id number] [facility] BRIEF OP NOTon 10-12-2016 BRIEF OP NOT HNO ID: [id number]: Brando Jhaveri (Fel)ervice: Orthopaedic SurgeryAuthor Type: FellowType: Brief Op NoteFiled: 10/12/2016 7:14 PMNote Text:BRIEF OPERATIVE / PROCEDURE NOTELOG ID: [id number]/Procedure Date: 10/12/2016Incision/Proced ure Start Time: 4:05 PMIncision Close/Procedure End Time: 6:[address]MS[address](s)/[address](s) and Layaway Clerk(s):Surgeon(s) and Role: * Karl Fuentes - Primary * Brando Gfof (Fel) - FellowPhysician Layaway Clerk: Britney Johnson) FrazierProcedure(s): Left distal femoral opening wedge osteotomy, proximal tibiahardware removal, and arthroscopic-assisted revision ACL reconstructionwith Achilles allograftAnesthesia: GeneralFindings: No chondral damage apparent; ACL torn as expected; excellentstability after graft fixationEstimated Blood Loss: 100 mLSpecimens: NoneComplications: NonePre-Op/Pre-Procedure Diagnosis: Failed left knee ACL graft; left lowerextremity malalignmentPost-Op/Post -Procedure Diagnosis: SameSIGNATURE: Brando Goff MD PATIENT NAME: Pan Ching MartinDATE: October 12, 2016 : 7:12 PM PAGER/CONTACT #: [facility] NURSING PROGon 10-12-2016 NURSING PROG HNO ID: [id number]: Marychuy (Rn) ABHISHEK Guptaervice: NursingAuthor Type: Registered NurseType: Nursing Progress NoteFiled: 10/13/2016 6:23 AMNote Text:0000 Assessment as charted Pt in good spirits. Mom @ bedside. Rates painas 2/10. Up to BR-steady with walker.0200 Pt resting [id number] Assessment unchanged. Pt rates pain as 3/10-dull. Up to BR. Nocomplaints.[address] Varela via phone. Pt ok for discharge. Setup forbreakfast. Pt given oxycodone AND tylenol for 3/10 dull pain [facility] OPERATIVE NOon 10-12-2016 OPERATIVE NO HNO ID: [id number]: Karl FuentesService: Orthopaedic SurgeryAuthor Type: PhysicianType: Operative ReportFiled: 11/01/2016 8:11 AMNote Text:[facility] COMMUNITY HOSPITALOperative ReportORIGINATOR: GAUDENCIO Miranda PAN LMRN: [id number] ACCTNUM: [id number]: OROR LOCATION: [address] PHYSICIAN:DATE OF PROCEDURE: 10/12/2016SURGEON: Karl Fuentes MDASSISTANT: Dr. Nima Goff. The assistant floor covering printer helped with portions of theretraction and arthroscopy while I was present for the entire criticalportions of the case.PREOPERATIVE DIAGNOSIS: Left knee recurrent anterior cruciate ligamenttear, scar, retained hardware, bony malalignment, partial medialmeniscectomy.POSTO PERATIVE DIAGNOSIS: Left knee recurrent anterior cruciate ligamenttear, scar, retained hardware, bony malalignment, partial medialmeniscectomy.OPERA TION: Left knee diagnostic arthroscopy, arthroscopic debridement ofscar, anterior cruciate ligament revision reconstruction utilizingAchilles allograft 9 mm, partial medial meniscectomy, removal of tibialhardware, osteotomy of distal femur. A level 22 modifier for increasedlevel of difficulty, requiring anincreased technical expertise as well as time.ANESTHESIA:INCISION TIME: 1605.INDICATIONS: This is a young lady who has had recurrent instability andpain in left knee. Risks, benefits, alternative procedures,complications discussed with her and her family. They have expressedtheir understanding and are willing to proceed in this fashion.DESCRIPTION OF OPERATION: The patient was taken to the operating room.After adequate anesthesia was obtained, the left knee was prepped anddraped in normal sterile fashion. Standard arthroscopy portals were thenmade and knee wassequentially examined. She was found to have a completely torn anteriorcruciate ligament. She was found to have a torn medial meniscus. Shewas found to have retained tibial hardware. She was also found to haveexcessive scar in theregion. We therefore proceeded with debridement of scar, partial medialmeniscectomy, debridement of ACL stump. We then proceeded with removal oftibial hardware, which was present from the prior reconstruction. Theregion wasidentified and then new Achilles allograft was fashioned into a 9 mm ACLgraft. This was therefore placed into appropriate position throughappropriate tunnels. PCL was fixed appropriately. Osteotomy was thenperformed appropriately to distal femur. This was made through aseparate incision on the lateral aspect of the distal femur. This wascarried through subcutaneous tissue, maintaining adequate hemostasis.The distal femur and then guide pins were then placed intoappropriate position. The femoral cut was then made using an oscillatingsaw made through under direct fluoroscopic visualization. The distalfemur was identified readily and then the area was then spread withlaminar spreaders. The area was visualized and found to remain inexcellent position. Appropriate correction was then obtained. The 7.5mm spacer was used based on overall alignmentvisualization. Then, the plate was then placed into appropriate position. Screws were then placed into appropriate position under fluoroscopicguidance. The bone graft was then placed and DBX was placed in theregion. This was found to be in excellent position. The area was thenirrigated closed in multiple layers finally with sutures on the skin.When complete, after debridement of scar in the joint arthroscopically aswell as ACL reconstruction, revision, as well as partial medialmeniscectomy, as well as removal of tibial hardware and finally theosteotomy distal femur, then area was then closed and she was awakened andsent to recovery in stable condition without difficulty.IV FLUIDS: LR.EBL: Negligible.COMPLICATIONS : No complications.DRAINS: No drains.SOHA MirandaS:MedRameshD: 10/24/2016 17:37:55T: 10/25/2016 01:47:08Job #: [id number] c: [facility] PROGRESSon 10-12-2016 PROGRESS HNO ID: [id number]: Brando Hernandez) Shakilaervice: Orthopaedic SurgeryAuthor Type: FellowType: Progress NotesFiled: 10/12/2016 7:23 PMNote Text:Ortho Sports Fellow Post-Op Check NoteS: Doing well in PACU, pain controlled, no N/VO: Vitals T 98.2 HR 94 BP 116/66 R 16 O2 96% on RA Gen NAD, AAOx3 CV Regular rate by peripheral pulse Resp Non labored respirations MSK LLE dressing in RADHA wrap, HKB Block still effective but motor function grossly intact: EHL/FHL/GS/TAfire 2+ DP pulse No new imaging post-opA/P: 16 yo F recovering well from L dist femur osteotomy, L prox tib HWR,rev ACL recon w/ Achilles allograft; plan for extended recovery for painmanagement- strict NWB LLE in HKB 0-90- pain control: PO + IV breakthrough- elevate LLE, ice PRN- antiemetics PRN- anticipate DC home w/ family in [place], Orthopedic Surgery Sports MedicineMercy Health [facility] Medical [phone] ([facility] mobile) [facility] NURSING PROGon 09-28-2016 NURSING PROG HNO ID: [id number]: Lisa Perez) ABHISHEK Lopezervice: (none)Author Type: Registered NurseType: Nursing Progress NoteFiled: 09/29/2016 2:44 PMNote Text:Pacc chart check.HANDP done 09/13/16Labs 09/13/16 Cbc+diff,Cmp WnlChart check complete pending review of instructions message left onvoicemail.Lisa Lopez RNPATIRICARDO PREOPERATIVE INSTRUCTIONSDr Fuentes has scheduled you for your procedure at this surgery center:[facility]: [phone] --[phone] [address].Please read below carefully for your personalized instructions.Blood Thinning Medications:- Stop NSAIDS (Ibuprofen, Advil, Aleve, Motrin, Celebrex, Mobic, etc.) 7days before surgery, as directed by your surgeon.- Stop Vitamin E, ALL multi-vitamins, herbals and dietary supplements 7days before surgery.- You may take Tylenol (Acetaminophen) or any of your pain medicationsthat do not contain aspirin or NSAIDS as needed.Dietary Restrictions:- No solid food after midnight.- You may have 12 ounces of clear liquids (water, clear juices such asapple juice or gatorade, carbonated beverages, clear tea, black coffee,jello) until 2 hours before scheduled arrival at facility.Pain Medications:Medications: Approved medications to take the morning of surgery with a sip of water:NoneIf you start any new medications after today's visit, please contact thergery center above.Important Reminders:- Candy, mints, gum and tobacco products are NOT permitted the morning ofsurgery.- Hearing aids, dentures and glasses may be worn the morning of surgery.- NO jewelry, body piercings, makeup, nail latvian, hairpins or contactsare to be worn the day of surgery.antibacterial soap showerIf you develop symptoms such as a fever, cold, or flu, or have otherchanges to your health within TWO DAYS of scheduled surgery or the morningof surgery, please contact the surgery center above.Personal Belongings:- Leave ALL valuables and money at home or with family members.For Outpatient Procedures: - YOU MUST HAVE A RESPONSIBLE WIRE BRUSHER TAKE YOU HOME. A FLATWORK PRESSER OR CABDRIVER CANNOT BE MADE A RESPONSIBLE WIRE BRUSHER.- We recommend that a responsible person stays with you overnight to takecare of you.- You cannot stay in a hotel alone after outpatient surgery. You will notbe permitted to have your surgery, if you do not have someone to take careof you. Arrival Time for Surgery:- The Surgery Center or hospital where you are having surgery will callthe afternoon before surgery (or Tuesday for Tuesday surgery) with ascheduled arrival time.- If you have not heard by 4 pm, please contact the surgery center above.Please be aware that emergency situations arise, which may delay or changeyour surgical time. If this happens, we will notify you as soon aspossible and regret any inconvenience.Lisa Lopez RN [facility] HOSPon 09-23-2016 HOSP Patient:Marcelino Berg LMRN: Height:5' 4"(1.626 m)Weight:127 lb (57.607 kg)Outpatient Medications as of 10/12/16:HYDROcodone-acet aminophen (NORCO) 5-325 mg per tabletondansetron (ZOFRAN) 4 mg tabletHYDROcodone-acetam inophen (NORCO) 5-325 mg per tabletAdmission/Clinic Administered Medications as of 10/12/16:lactated ringers infusion0.9% NaCl 2-10 mLlidocaine 4 % topical cream (LMX)ceFAZolin 2 g in dextrose (iso-osmotic) 100 mL (ANCEF, KEFZOL)scopolamine 1.5 mg (1 mg over 3 days) 1 Patch (TRANSDERM-SCOP)scopolam ine - REMOVE PATCHscopolamine - VERIFY patchProblem List:Sprain of cruciate ligament of knee [S83.509A]Tear of medial cartilage or meniscus of knee, current [[id number]]Adolescent idiopathic scoliosis of thoracolumbar region [M41.125]Abnormality of gait [R26.9]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]Scoliosis [M41.9]S/P spinal fusion [Z98.1]Patellar tendinitis [M76.50]Left knee pain [M25.562]S/P ACL reconstruction [Z98.890]Retained orthopedic hardware [Z96.9]Genu varum [M21.169]Left ACL tear [S83.512A]Allergies:No Known AllergiesDate Verified:10/12/16Lab ValuesLab Value Units Date High LowPOTA* 4.3 mmol/L 09/13/2016 5.1 3.7HEMA* 44.0 % 09/13/2016 46.0 36.0Progress Notes (ORTHOPAEDIC AND RHEUMATOLOGIC INST):Tatiana Bray 09/23/2016 11:33 AM SignedRobert would like to reschedule Pan's surgery from Tuesday when it was CXdue to the abrasion on her knee.Please call to discuss.He would like for it to be next week if possible. Trying to get it done beforeschool starts.Wbtxtt- [phone] [facility] NURSING PROGon 09-21-2016 NURSING PROG HNO ID: [id number]: Olivia (Rn) ABHISHEK Ozunaervice: NursingAuthor Type: Registered NurseType: Nursing Progress NoteFiled: 09/21/2016 12:54 PMNote Text:Left knee noted to have a abrasion on it. Dr Fuentes notified. Dr Fuentesat bedside and spoke to patient and parents. Surgery cancelled due to theabrasion. Britney owens notified parents of reschedule. [facility] NURSING PROGon 09-13-2016 NURSING PROG HNO ID: [id number]: Roseanna Perez) Sirena Montoyaice: (none)Author Type: Registered NurseType: Nursing Progress NoteFiled: 09/14/2016 8:30 AMNote Text:PACC complete 09/13/16 at [facility]. H and P 09/13/16. Labs pending from09/13/16. LMP 08/25/16. BMI 21.7.HX of scoliosis with thoracic fusion 2015.Chart check pending lab results from 09/13/16. MARTA Yañez09/14/16 Labs 09/13/16 cbc/diff,bmp- wnl. 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]Scoliosis [M41.9]S/P spinal fusion [Z98.1]Patellar tendinitis [M76.50]Left knee pain [M25.562]S/P ACL reconstruction [Z98.890]Retained orthopedic hardware [Z96.9]Genu varum [M21.169]Allergies:No Known AllergiesDate Verified:09/13/16Lab ValuesLab Value Units Date High LowPOTA* 4.3 mmol/L 09/13/2016 5.1 3.7HEMA* 44.0 % 09/13/2016 46.0 36.0Progress Notes ([facility]):RT Oleksandr 08/23/2016 10:28 AM Signed Radiology Service Progress NotePATIENT NAME: Pan BergMRN: [id number] OF SERVICE: August 23, 2016TIME: 10:27 AMPATIENT IDENTITY VERIFICATION COMPLETED USING TWO (2) METHODS: Patientconfirmed name verbally and Date of .PATIENT GENDER DATA: Female. status: : No Breastfeedingstatus: NO.PATIENT RELEVANT IMPLANT DATA REVIEWED: Not ApplicableRADIOLOGY DEPARTMENT: General X-ray: Exam(s) Completed: Lower ExtremityX-Ray(s): Scanogram and FLEA (Full Length Lower Extremity):PERIPHERAL IV DATA: Not applicableSIGNED BY: Alisson Mckenzie RTJuly 2016 10:27 AMProgress Notes (SPORTS HLTH/PED [facility]):Karl Fuentes MD 08/23/2016 10:34 AM SignedJuly 2016HPI: Comes in today for follow-up on her left leg. I reviewed the entiresituation with her at length. Have reviewed her alignment, symptoms,instability complaints. Also has complaints of right hip at this point based onthe way she is walking. Has had complaints of patellar tendinitis as well onthat leg for quite some time. After spending 25 minutes [id number] time withher today in the office, discussing all options and approaches, we've decided toproceed with arthroscopy left knee, arthroscopic-assisted allograft Achillesanterior cruciate ligament reconstruction, removal of hardware proximal tibia,lateral distal femoral opening wedge osteotomy.Past Medical History:PAST MEDICAL HISTORYDiagnosis Date- Scoliosis of thoracic spineFamily History:FAMILY HISTORY heart problems [Other] [OTHER] Maternal Grandfather kidney problems [Other] [OTHER] Comment: paternal sideSocial History: NoncontributoryMedicatio ns:diclofenac sodium (VOLTAREN) 1 % topical gel Apply 4 g to affected area fourtimes daily.naproxen (NAPROSYN) 375 mg tablet Take 1 tablet by mouth twice daily with meals.Allergies: ALLERGIESNo Known AllergiesPhysical Exam: As per prior examsXRDiagnosis: As aboveAssessment/Plan: Proceed with above-mentioned procedure. Rationale for usingallograft Achilles is due to the fact that she has patellar tendinitis and wewill be close to the insertion site of the patellar tendon while removinghardware. I feel that these 2 issues will create a potential problem insimultaneous operative approach of a distal femoral opening wedge osteotomy.They've expressed her understanding and are willing to proceed in this fashion.Karl Fuentes MD [facility] Vital Signs Date Time Vital Sign Value Performing Clinician Facility 11-03-2022 15:34-0400 Body height 160.02 cm BLACKENERHeather Hernandez BLACKENER Work Phone: [facility] 11-03-2022 15:32-0400 Body mass index (BMI) [Ratio] 26.2 kg/m2 ABAD Hernandez BLACKENER Work Phone: [facility] 11-03-2022 15:32-0400 Body weight 67.24 kg ABAD Hernandez BLACKENER Work Phone: [facility] 11-03-2022 15:32-0400 Diastolic blood pressure 84 mm[Hg] ABAD Hernandez BLACKENER Work Phone: [facility] 11-03-2022 15:32-0400 Systolic blood pressure 129 mm[Hg] ABAD Hernandez BLACKENER Work Phone: [facility] 10-28-2022 15:37-0400 Body mass index (BMI) [Ratio] 26.4 kg/m2 ABAD Hernandez BLACKENER Work Phone: [facility] 10-28-2022 15:37-0400 Body weight 67.81 kg BLACKENER-C Isabella Haagen BLACKENER Work Phone: 3(891)650-615134 [place] [address] 10-28-2022 15:37-0400 Diastolic blood pressure 77 mm[Hg] BLACKENER-C Isabella Haagen BLACKENER Work Phone: 9(194)387-516134 [place] [address] 10-28-2022 15:37-0400 Systolic blood pressure 117 mm[Hg] BLACKENER-C Isabella Haagen BLACKENER Work Phone: 0(002)204-539364 [place] [address] 10-22-2022 14:45-0400 Body mass index (BMI) [Ratio] 26.4 kg/m2 BLACKENER-C Isabella Haagen BLACKENER Work Phone: 5(234)606-670764 [place] [address] 10-22-2022 14:45-0400 Body weight 67.64 kg BLACKENER-C Isabella Haagen BLACKENER Work Phone: 8(042)056-770164 [place] [address] 10-22-2022 14:45-0400 Diastolic blood pressure 78 mm[Hg] BLACKENER-C Isabella Haagen BLACKENER Work Phone: 3(813)099-412464 [place] [address] 10-22-2022 14:45-0400 Systolic blood pressure 119 mm[Hg] BLACKENER-C Isabella Haagen BLACKENER Work Phone: 9(073)474-294664 [place] [address] 10-12-2022 14:42-0400 Body mass index (BMI) [Ratio] 26.4 kg/m2 BLACKENER-C Isabella Haagen BLACKENER Work Phone: 9(991)003-898464 [place] [address] 10-12-2022 14:42-0400 Body weight 67.64 kg BLACKENER-C Isabella Haagen BLACKENER Work Phone: 7(975)860-289964 [place] [address] 10-12-2022 14:42-0400 Diastolic blood pressure 77 mm[Hg] BLACKENER-C Isabella Haagen BLACKENER Work Phone: 4(035)886-551464 [place] [address] 10-12-2022 14:42-0400 Systolic blood pressure 127 mm[Hg] BLACKENER-C Isabella Haagen BLACKENER Work Phone: 6(831)307-311864 [place] [address] 10-07-2022 15:00-0400 Body height 160.02 cm BLACKENER-C Isabella Haagen BLACKENER Work Phone: 9(197)320-940934 [place] [address] 10-07-2022 14:59-0400 Body mass index (BMI) [Ratio] 26.4 kg/m2 BLACKENER-C Isabella Alcantaragen BLACKENER Work Phone: 4(104)343-623864 [place] [address] 10-07-2022 14:59-0400 Body weight 67.69 kg BLACKENER-C Isabella Alcantaragen BLACKENER Work Phone: 1(399)080-389564 [place] [address] 10-07-2022 14:59-0400 Diastolic blood pressure 82 mm[Hg] BLACKENER-C Isabella Haagen BLACKENER Work Phone: 6(037)050-463264 [place] [address] 10-07-2022 14:59-0400 Systolic blood pressure 127 mm[Hg] BLACKENER-C Isabella Alcantaragen BLACKENER Work Phone: 9(151)934-342564 [place] [address] 09-23-2022 14:45-0400 Body mass index (BMI) [Ratio] 26.5 kg/m2 BLACKENER-C Isabella Alcantaragen BLACKENER Work Phone: 4(065)294-294364 [place] [address] 09-23-2022 14:45-0400 Body weight 68.03 kg BLACKENER-C Isabella Alcantaragen BLACKENER Work Phone: 4(051)654-564064 [place] [address] 09-23-2022 14:45-0400 Diastolic blood pressure 74 mm[Hg] BLACKENER-C Isabella Haagen BLACKENER Work Phone: 4(184)690-967364 [place] [address] 09-23-2022 14:45-0400 Systolic blood pressure 120 mm[Hg] BLACKENER-C Isabella Alcantaragen BLACKENER Work Phone: 1(493)546-003064 [place] [address] 08-19-2022 15:08-0400 Body mass index (BMI) [Ratio] 26 kg/m2 BLACKENER-C Isabella Haagen BLACKENER Work Phone: 6(165)501-814364 [place] [address] 08-19-2022 15:08-0400 Body weight 66.73 kg BLACKENER-C Isabella Haagen BLACKENER Work Phone: 5(453)943-092764 [place] [address] 08-19-2022 15:08-0400 Diastolic blood pressure 79 mm[Hg] BLACKENER-C Isabella Haagen BLACKENER Work Phone: 9(867)881-569564 [place] [address] 08-19-2022 15:08-0400 Systolic blood pressure 122 mm[Hg] BLACKENER-C Isabella Haagen BLACKENER Work Phone: 9(065)888-520664 [place] [address] 08-19-2022 14:37-0400 Body mass index (BMI) [Ratio] 25.7 kg/m2 BLACKENER-C Isabella Haagen BLACKENER Work Phone: 7(750)919-810364 [place] [address] 08-19-2022 14:37-0400 Body weight 65.77 kg BLACKENER-C Isabella Haagen BLACKENER Work Phone: 5(321)383-709964 [place] [address] 08-19-2022 14:37-0400 Diastolic blood pressure 64 mm[Hg] BLACKENER-C Isabella Haagen BLACKENER Work Phone: 1(480)811-120964 [place] [address] 08-19-2022 14:37-0400 Systolic blood pressure 100 mm[Hg] BLACKENER-C Isabella Haagen BLACKENER Work Phone: 2(689)565-410364 [place] [address] 08-04-2022 14:42-0400 Body height 160.02 cm BLACKENER-C Isabella Haagen BLACKENER Work Phone: 9(925)283-853164 [place] [address] 08-04-2022 14:41-0400 Body mass index (BMI) [Ratio] 25.3 kg/m2 BLACKENER-C Isabella Haagen BLACKENER Work Phone: 7(528)581-768964 [place] [address] 08-04-2022 14:41-0400 Body weight 64.86 kg BLACKENER-C Isabella Haagen BLACKENER Work Phone: 2(766)090-311164 [place] [address] 08-04-2022 14:41-0400 Diastolic blood pressure 74 mm[Hg] BLACKENER-C Isabella Haagen BLACKENER Work Phone: 1(503)845-218064 [place] [address] 08-04-2022 14:41-0400 Systolic blood pressure 118 mm[Hg] BLACKENER-C Isabella Haagen BLACKENER Work Phone: 3(145)777-815164 [place] [address] 07-23-2022 15:51-0400 Body mass index (BMI) [Ratio] 25.6 kg/m2 BLACKENER-C Isabella Haagen BLACKENER Work Phone: 1(950)291-062564 [place] [address] 07-23-2022 15:51-0400 Body weight 65.54 kg BLACKENER-C Isabella Ortizagen BLACKENER Work Phone: 3(202)897-781564 [place] [address] 07-23-2022 15:51-0400 Diastolic blood pressure 68 mm[Hg] BLACKENER-C Isabella Haagen BLACKENER Work Phone: 2(669)996-179864 [place] [address] 07-23-2022 15:51-0400 Systolic blood pressure 120 mm[Hg] BLACKENER-C Isabella Haagen BLACKENER Work Phone: 5(578)395-056364 [place] [address] 06-08-2022 13:08-0400 Body mass index (BMI) [Ratio] 23.9 kg/m2 BLACKENER-C Isabella Haagen BLACKENER Work Phone: 1(891)573-037964 [place] [address] 06-08-2022 13:08-0400 Body weight 61.23 kg BLACKENER-C Isabella Haagen BLACKENER Work Phone: 8(711)053-073864 [place] [address] 06-08-2022 13:08-0400 Diastolic blood pressure 71 mm[Hg] BLACKENER-C Isabella Haagen BLACKENER Work Phone: 5(602)121-769764 [place] [address] 06-08-2022 13:08-0400 Systolic blood pressure 116 mm[Hg] BLACKENER-C Isabella Haagen BLACKENER Work Phone: 1(441)037-942764 [place] [address] 05-12-2022 13:45-0400 Body mass index (BMI) [Ratio] 23.3 kg/m2 BLACKENER-C Isabella Haagen BLACKENER Work Phone: 1(112)744-708264 [place] [address] 05-12-2022 13:45-0400 Body weight 59.59 kg BLACKENER-C Isabella Haagen BLACKENER Work Phone: 2(137)007-606564 [place] [address] 05-12-2022 13:45-0400 Diastolic blood pressure 79 mm[Hg] BLACKENER-C Isabella Haagen BLACKENER Work Phone: 1(353)123-437864 [place] [address] 05-12-2022 13:45-0400 Systolic blood pressure 119 mm[Hg] BLACKENER-C Isabella Haagen BLACKENER Work Phone: 3(207)147-392564 [place] [address] 04-16-2022 14:56-0500 Body mass index (BMI) [Ratio] 22.5 kg/m2 BLACKENER-C Isabella Haagen BLACKENER Work Phone: [facility] 04-16-2022 14:56-0500 Body weight 57.77 kg BLACKENERHeather Hernandez BLACKENER Work Phone: [facility] 04-16-2022 14:56-0500 Diastolic blood pressure 79 mm[Hg] BLACKENER-Tara Hernandez BLACKENER Work Phone: [facility] 04-16-2022 14:56-0500 Systolic blood pressure 120 mm[Hg] BLACKENER-Tara Hernandez BLACKENER Work Phone: [facility] 03-15-2022 11:43-0500 Body temperature 98.49 [degF] Garrick Urrutia MD Work Phone: [facility] 03-15-2022 11:43-0500 Body weight 55.7 kg Garrick Urrutia MD Work Phone: [facility] 03-15-2022 11:43-0500 Diastolic blood pressure 62 mm[Hg] Garrick Urrutia MD Work Phone: [facility] 03-15-2022 11:43-0500 Heart rate 77 /min Garrick Urrutia MD Work Phone: [facility] 03-15-2022 11:43-0500 Respiratory rate 18 /min Garrick Urrutia MD Work Phone: [facility] 03-15-2022 11:43-0500 SaO2% (BldA) [Mass fraction] 99 % Garrick Urrutia MD Work Phone: [facility] 03-15-2022 11:43-0500 Systolic blood pressure 110 mm[Hg] Garrick Urrutia MD Work Phone: [facility] 03-12-2022 14:01-0500 Body height 160.02 cm ABAD Hernandez BLACKENER Work Phone: [facility] 03-12-2022 14:00-0500 Body mass index (BMI) [Ratio] 21.4 kg/m2 BLACKENERHeather Hernandez BLACKENER Work Phone: [facility] 03-12-2022 14:00-0500 Body weight 54.94 kg BLACKENER-C Isabella Hernandez BLACKENER Work Phone: [facility] 03-12-2022 14:00-0500 Diastolic blood pressure 76 mm[Hg] BLACKENER-C Isabella Hernandez BLACKENER Work Phone: [facility] 03-12-2022 14:00-0500 Systolic blood pressure 130 mm[Hg] BLACKENER-C Isabella Hernandez BLACKENER Work Phone: [facility] Encounters Encounter Date Encounter Type Care Provider Facility Start: 12-14-2023 ambulatory Isabella Hernandez BLACKENER Facil ity:[facility] Start: 12-08-2023 ambulatory Alexandra Montañotings Facility :[facility] Start: 11-09-2022 End: 11-09-2022 ambulatory BLACKENER-C Isabella Hernandez BLACKENER Work Phone: [facility] Work Phone: Start: 11-09-2022 End: 11-09-2022 Patient encounter procedure BLACKENER-C Isabella Hernandez BLACKENER Work Phone: [facility] Work Phone: Start: 11-03-2022 End: 11-03-2022 Patient encounter procedure BLACKENER-C Isabella Hernandez BLACKENER Work Phone: [facility] Work Phone: Start: 10-28-2022 End: 10-28-2022 Patient encounter procedure BLACKENER-C Isabella Hernandez BLACKENER Work Phone: [facility] Work Phone: Start: 10-22-2022 End: 10-22-2022 Patient encounter procedure BLACKENER-C Isabella Hernandez BLACKENER Work Phone: [facility] Work Phone: Start: 10-12-2022 End: 10-12-2022 Patient encounter procedure BLACKENER-C Isabella Hernandez BLACKENER Work Phone: [facility] Work Phone: Start: 10-07-2022 End: 10-07-2022 ambulatory BLACKENER-C Isabella Hernandez BLACKENER Work Phone: [facility] Work Phone: Start: 10-07-2022 End: 10-07-2022 Patient encounter procedure BLACKENER-C Isabella Hernandez BLACKENER Work Phone: [facility]-Laboratory, Specimen Work Phone: Start: 10-07-2022 End: 10-07-2022 Patient encounter procedure BLACKENER-C Isabella Hernandez BLACKENER Work Phone: [facility] Work Phone: Start: 09-23-2022 End: 09-23-2022 Patient encounter procedure BLACKENER-C Isabella Hernandez BLACKENER Work Phone: [facility] Work Phone: Start: 09-06-2022 End: 09-06-2022 Patient encounter procedure BLACKENER-C Isabella Hernandez BLACKENER Work Phone: [facility] Work Phone: Start: 08-19-2022 End: 08-19-2022 Patient encounter procedure BLACKENER-C Isabella Hernandez BLACKENER Work Phone: [facility] Work Phone: Start: 08-04-2022 End: 08-04-2022 ambulatory BLACKENER-C Isabella Hernandez BLACKENER Work Phone: [facility] Work Phone: Start: 08-04-2022 End: 08-04-2022 Patient encounter procedure BLACKENER-C Isabella Hernandez BLACKENER Work Phone: [facility] Start: 07-23-2022 End: 07-23-2022 Patient encounter procedure BLACKENER-C Isabella Hernandez BLACKENER Work Phone: [facility] Start: 06-15-2022 End: 06-15-2022 ambulatory [facility]URG[facility] Start: 06-08-2022 End: 06-08-2022 Patient encounter procedure BLACKENER-C Isabella Hernandez BLACKENER Work Phone: [facility] Start: 05-12-2022 End: 05-12-2022 Patient encounter procedure BLACKENER-C Isabella Hernandez BLACKENER Work Phone: [facility] Start: 04-16-2022 End: 04-16-2022 Patient encounter procedure BLACKENER-C Isabella Hernandez BLACKENER Work Phone: [facility] Start: 03-15-2022 End: 03-15-2022 ambulatory [facility] Facility:[facility] Start: 03-15-2022 End: 03-15-2022 Patient encounter procedure Garrick Urrutia MD Work Phone: [facility] Comment on above: Sore throat (Primary Dx); URI, acute Start: 03-12-2022 End: 03-12-2022 ambulatory BLACKENER-C Isabella Hernandez BLACKENER Work Phone: [facility] Work Phone: Start: 03-12-2022 End: 03-12-2022 Patient encounter procedure BLACKENER-C Isabella Hernandez BLACKENER Work Phone: [facility]-Laboratory, Specimen Start: 03-12-2022 End: 03-12-2022 Patient encounter procedure BLACKENER-C Isabella Hernandez BLACKENER Work Phone: [facility] Start: 03-23-2021 End: 03-23-2021 ambulatory [facility] Facility:[facility] Start: 10-13-2020 End: 10-13-2020 Subsequent hospital visit by physician Autumn [facility] Work Phone: Radiology Comment on above: Pain [R52] Start: 10-12-2016 Ambulatory [facility] Start: 09-21-2016 End: 09-21-2016 Ambulatory [facility] Procedures Date Procedure Procedure Detail Performing Clinician Start: 10-07-2022 Group B Streptococcus Culture BLACKENER-C Isabella Hernandez NP Work Phone: Start: 03-15-2022 STREP A MOLECULAR (POC) Samantha Rosales MA Start: 10-13-2020 Radiologic exam knee complete 4/more views Gregory ROBLES-C Work Phone: Start: 02-21-2017 History of operative procedure on knee S/P ACL surgery Garrick Urrutia MD Work Phone: Start: 02-23-2016 History of operative procedure on knee S/P ACL reconstruction Garrick Urrutia MD Work Phone: Urine culture BLACKENER-C Isabella mitchell BLACKENER Work Phone: Plan of Treatment Date Care Activity Detail Author Start: 10-16-2023 Covid-19 Vaccine ( season) Covid-19 Vaccine ( season) [facility] Start: 10-16-2023 Influenza vaccination Influenza Vacc ine (#1) [facility] Start: 11-09-2022 Nonstress test [facility] Start: 11-09-2022 Obstetric monitoring [facility] Start: 11-09-2022 Vital signs measurements [facility] Start: 11-09-2022 [facility] Start: 11-09-2022 Vital signs measurements [facility] Start: 11-09-2022 Patient discharge [facility] Start: 10-02-2022 Urine microalbumin profile [facility] Start: 03-15-2022 End: 03-29-2022 Influenza virus A and B RNA and SARS-CoV-2 (COVID-19) N gene panel - Respiratory specimen by TRACY with probe detection [facility] Work Phone: Comment on above: Expected: 03/15/2022 , Expires: 03/29/2022 Start: 02-14-2022 DEPRESSION ASSESSMENT DEPRESSION ASS ESSMENT [facility] Start: 10-15-2021 Influenza vaccination INFLUENZA (#1) [facility] Start: 02-08-2021 PAP TESTING PAP TESTING [facility] Start: 02-08-2021 Screening for malign ant neoplasm of cervix Cervical Cancer Screening [facility] Start: 08-05-2020 COVID-19 VACCINE (3 - Booster) COVID-19 VACCINE (3 - Booster) [facility] Start: 02-08-2018 Anxiety Screening Anxiety Screening [facility] Start: 02-08-2018 CHLAMYDIA SCREENING (18-24) CHLAMYDIA SCREENING (18-24) [facility] Start: 02-08-2018 Depression Screening Depression Scre ening [facility] Start: 02-08-2018 GC (GONORRHEA) SCREE PAOLO (18) GC (GONORRHEA) SCREENING (18-24) [facility] Start: 02-08-2018 HEPATITIS C SCREENING HEPATITIS C [facility] Start: 02-08-2018 Hepatitis C screening Hepatitis C [facility] Start: 02-08-2018 HIV SCREENING HIV SCREENING [facility] Start: 02-08-2018 HIV screening HIV Screening [facility] Start: 02-08-2018 Screening for Chlamy germain trachomatis Chlamydia Screening () [facility] Start: 2016 Meningococcal B Vacc ine: Consider Based On Risk (1 of 2 - Patient Seeks Protection) Meningococcal B Vaccine: Consider Based On Risk (1 of 2 - Patient Seeks Protection) [facility] Start: 02-08-2015 HPV Vaccine (1 - 3-d ose series) HPV Vaccine (1 - 3-dose series) [facility] Start: 02-08-2014 PEDS TO ADULT TRANSI TION ANNUAL ASSESSMENT PEDS TO ADULT TRANSITION ANNUAL ASSESSMENT [facility] Start: 2012 PEDS TO ADULT TRANSI TION INITIAL DISCUSSION PEDS TO ADULT TRANSITION INITIAL DISCUSSION [facility] Start: 02-08-2011 HPV VACCINE (1 - 2-d ose series) HPV VACCINE (1 - 2-dose series) [facility] Start: 02-08-2010 MENINGOCOCCAL B: Consider based on risk (1 of 2 - Risk Bexsero 2-dose series) MENINGOCOCCAL B: Consider based on risk (1 of 2 - Risk Bexsero 2-dose series) [facility] CBC W Auto Different ial panel - Blood [facility] CBC W Auto Different ial panel - Blood [facility] Glucose [Mass/volume ] in Serum or Plasma --1 hour post 50 g glucose PO [facility] Hepatitis B surface antigen measurement [facility] Hepatitis C antibody measurement [facility] HIV 1+2 Ab+HIV1 p24 Ag [Presence] in Serum or Plasma by Immunoassay [facility] HIV 1+2 Ab+HIV1 p24 Ag [Presence] in Serum or Plasma by Immunoassay [facility] Patient Education Kick Counts ED False Labor OB Triage: Return to Hospital or Notify Physician if you Experience: [facility] Work Phone: Patient referral [facility] Work Phone: Rubella IgG measurement [facility] Treponema sp Ab [Presence] in Serum [facility] Treponema sp Ab [Presence] in Serum [facility] Immunizations Immunization Date Immunization Notes Care Provider [facility] 12-04-2019 influenza virus vaccine, unspecified formulation [facility] Work Phone: [facility] 11-15-2019 influenza, seasonal, injectable Garrick Urrutia MD Work Phone: [facility] 10-02-2012 tetanus toxoid, reduced diphtheria toxoid, and acellular pertussis vaccine, adsorbed Garrick Urrutia MD Work Phone: [facility] Work Phone: 11-03-2004 diphtheria, tetanus toxoids and acellular pertussis vaccine Garrick Urrutia MD Work Phone: [facility] Work Phone: 11-03-2004 measles, mumps and rubella virus vaccine Garrick Urrutia MD Work Phone: [facility] Work Phone: 11-03-2004 poliovirus vaccine, inactivated Garrick Urrutia MD Work Phone: [facility] Work Phone: 09-25-2001 diphtheria, tetanus toxoids and acellular pertussis vaccine Garrick Urrutia MD Work Phone: [facility] Work Phone: 09-25-2001 haemophilus influenz ae type b vaccine, HbOC conjugate Garrick Urrutia MD Work Phone: [facility] Work Phone: 09-25-2001 poliovirus vaccine, inactivated Garrick Urrutia MD Work Phone: [facility] 09-25-2001 varicella virus vaccine Garrick Urrutia MD Work Phone: [facility] Work Phone: 03-30-2001 measles, mumps and rubella virus vaccine Garrick Urrutia MD Work Phone: [facility] Work Phone: 03-30-2001 pneumococcal conjuga te vaccine, 7 valent Garrick Urrutia MD Work Phone: [facility] Work Phone: 2000 diphtheria, tetanus toxoids and acellular pertussis vaccine Garrick Urrutia MD Work Phone: [facility] Work Phone: 2000 haemophilus influenz ae type b vaccine, HbOC conjugate Garrick Urrutia MD Work Phone: [facility] Work Phone: 2000 hepatitis B vaccine, pediatric or pediatric/adolescent dosage Garrick Urrutia MD Work Phone: [facility] Work Phone: 2000 pneumococcal conjuga te vaccine, 7 valent Garrick Urrutia MD Work Phone: [facility] Work Phone: 2000 diphtheria, tetanus toxoids and acellular pertussis vaccine Garrick Urrutia MD Work Phone: [facility] Work Phone: 2000 haemophilus influenz ae type b vaccine, HbOC conjugate Garrick Urrutia MD Work Phone: [facility] Work Phone: 2000 pneumococcal conjuga te vaccine, 7 valent Garrick Urrutia MD Work Phone: [facility] Work Phone: 2000 poliovirus vaccine, inactivated Garrick Urrutia MD Work Phone: [facility] 2000 diphtheria, tetanus toxoids and acellular pertussis vaccine Garrick Urrutia MD Work Phone: [facility] Work Phone: 2000 haemophilus influenz ae type b vaccine, HbOC conjugate Garrick Urrutia MD Work Phone: [facility] Work Phone: 2000 poliovirus vaccine, inactivated Garrick Urrutia MD Work Phone: [facility] 2000 hepatitis B vaccine, pediatric or pediatric/adolescent dosage Garrick Urrutia MD Work Phone: [facility] Work Phone: 2000 hepatitis B vaccine, pediatric or pediatric/adolescent dosage Garrick Urrutia MD Work Phone: [facility] Work Phone: Payers Date Payer Category Payer Self-pay [id number] 2018 Unknown [id number] 2018 Unknown [id number] 2000 Unknown [id number] Unknown [id number] Unknown [id number] Social History Date Type Detail Facility Start: 02-17-2018 End: 03-15-2022 Tobacco smoking status NHIS Never smoked tobacco [facility] Start: 02-17-2018 End: 03-15-2022 Tobacco use and exposure Smokeless tobacco non-user [facility] Start: 04-03-2020 End: 03-15-2022 Alcohol intake Current non-drinker of alcohol (finding) [facility] Start: 06-01-2011 End: 03-15-2022 Tobacco Comment Not Currently [facility] Start: 2000 Sex Assigned At Not on file [facility] Start: 03-12-2022 End: 11-03-2022 Tobacco smoking status ALIS Unknown if ever smoked [facility] Start: 2000 Sex Assigned At Female W [facility] Start: 01-21-2020 End: 04-03-2020 History of Social function [facility] Start: 01-21-2020 End: 04-03-2020 Tobacco use panel [facility] National Score (1-100), lower number is lower risk Not on file [facility] Start: 09-13-2020 End: 10-13-2020 Exposure to SARS-CoV-2 (event) Not sure [facility] Medical Equipment Procedure Code Equipment Code Equipment Origin al Text Equipment Identifier Dates [place] Swivelock C 4.75mm Black White Biocomposite Peek 19.1mm Suture - [id number] Start: 03-09-2019 Osferion Bone Vo id Filler - [id number] Start: 06-03-2015 Comment on above: Description: BONE VO ID FILLER Filler Dbx Bone Void Allograft Freeze Dried Putty 5ml - [id number] Start: 06-03-2015 Comment on above: Description: DBX PUT TY Graft Dbx Bone V oid Allograft Freeze Dried Putty 5ml - [id number] Start: 10-12-2016 Comment on above: Description: DBX PUT TY Graft Vertigraft Demineralized Bone Matrix Cancellous Bone Chips Freeze - [id number] Start: 08-14-2015 Apt-Lc-Q-Kind Im plant - [id number] Start: 01-14-2012 Comment on above: Description: SCREW C ANCELLOUS LOW PROFILE 15mm Tibial Open ing Wedge Plate [id number] Start: 06-03-2015 Comment on above: Description: OSTEO P LATE Screw Rosa 3 Sandrine nium Set Becky Spine - [id number] Start: 08-14-2015 Intrafix Advance [id number] Comment on above: Description: INTRAFI X ADVANCE Intrafix Advance [id number] Start: 10-12-2016 Comment on above: Description: INTRAFI X ADVANCE Button Tightrope Large 20x5mm Suture Pot Fluxer Footprint - [id number] Start: 03-09-2019 Trace 5.5mm Vitall ium Spinal Hexagon - [id number] Start: 08-14-2015 Screw Dcp Lc-Dcp 4.5mm 8mm Standard Stainless Steel 38mm Bone Large - [id number] Start: 06-03-2015 Comment on above: Description: CORTICA L SCREW Screw Rosa 3 6.5m m Titanium 45mm Bone 2 Machine Groove Uniplanar Polyaxial - [id number] Start: 08-14-2015 Screw Lcp 6.5mm 8mm Partial Thread Stainless Steel 65mm 32mm Bone Large - [id number] Start: 10-12-2016 Comment on above: Description: CANCELL OUS SCREW Staple Staplizer Plastic 86x34gz Bone Sterile Orthopedic - [id number] Start: 10-12-2016 Comment on above: Description: BONE ST APLE CARTRIDGE Graft Achilles T endon Calcaneus 19.4-99dsk65-96ot Soft Tissue Allograft - [id number] Start: 10-12-2016 Comment on above: Description: GIOVANNI S TENDON Kit Internalbrac e Fibertape Swivelock Arthroscopic Fixation 2 [place] 2 - [id number] Start: 03-09-2019 Osferion Bone Vo id Filler - [id number] Start: 06-03-2015 Comment on above: Description: BONE VO ID FILLER Graft Vertigraft Demineralized Bone Matrix Cancellous Bone Chips Freeze - [id number] Start: 08-14-2015 Kit Arthscp Fix Tghtrp Rt Acl - [id number] Start: 01-14-2012 Comment on above: Description: ACL TIG HTROPE KIT Jof-Wd-H-Kind Im plant - [id number] Start: 01-14-2012 Comment on above: Description: SUTURE WASHER Filler Osferion 30x7mm Bone Void Optimum Pore Diameter Rigid Fixation - [id number] Start: 10-12-2016 Comment on above: Description: OSERION OSTEO WEDGE 7.5 Mm Opening W edge Plate [id number] Start: 10-12-2016 Comment on above: Description: TIBIAL OPENING WEDGE OSTEO PLATE Lxh-Go-A-Kind Im plant - [id number] Start: 03-09-2019 Graft Semitendin osus Tendon 73-78jwo7-04kr Soft Tissue Allograft Frozen - [id number] Start: 03-09-2019 Kit Tightrope Titanium Uhmwpe Endoscopic Instrument Arthroscopy Sterile - [id number] Start: 03-09-2019 Screw Lcp 6.5mm 8mm Full Thread Stainless Steel 40mm Bone Large Hexagonal - [id number] Start: 06-03-2015 Comment on above: Description: FULL TH READ SCREW Screw Dcp Lc-Dcp 4.5mm 8mm Standard Stainless Steel 36mm Bone Large - [id number] Start: 06-03-2015 Comment on above: Description: CORTICA L SCREW Screw Rosa 3 5.5m m Titanium 35mm Bone 2 Machine Groove Uniplanar Polyaxial - [id number] Start: 08-14-2015 Screw Rosa 3 5.5m m Titanium 40mm Bone 2 Machine Groove Uniplanar Polyaxial - [id number] Start: 08-14-2015 Screw Rosa 3 5.5m m Titanium 30mm Bone Polyaxial Spine Thoracolumbar - [id number] Start: 08-14-2015 Screw Rosa 3 5.5m m Titanium 35mm Bone Polyaxial Spine Thoracolumbar - [id number] Start: 08-14-2015 Screw Rosa 3 6.5m m Titanium 40mm Bone 2 Machine Groove Uniplanar Polyaxial - [id number] Start: 08-14-2015 Screw Dcp Lc-Dcp 4.5mm 8mm Standard Stainless Steel 38mm Bone Large - [id number] Start: 10-12-2016 Comment on above: Description: CORTEX SCREW Screw Dcp Lc-Dcp 4.5mm 8mm Standard Stainless Steel 48mm Bone Large - [id number] Start: 10-12-2016 Comment on above: Description: CORTEX SCREW Screw Dhs/Dcs 4. 5mm 8mm Standard Large Hexagon Stainless Steel 50mm Bone - [id number] Start: 10-12-2016 Comment on above: Description: CORTEX SCREW Screw Lcp 6.5mm Partial Thread Stainless Steel 55mm 32mm Bone Large - [id number] Start: 10-12-2016 Comment on above: Description: CANCELL OUS SCREW Clinical Notes 08-14-2015 to 03-15-2022 Garrick Urrutia MD - 03/15/2022 11:48 AM Yudith Garcia RT(R) - 10/13/2020 8:15 AM EDT Note Date & Type Note Facility 03-15-2022 Influenza virus A and B RNA and SARS-CoV-2 (COVID-19) N gene panel TRACY+probe (Resp) COVID 19 RESULT: SARS-CoV-2 (Agent of COVID-19) Not Detected by RT-PCR or equivalent method. This test was developed and its performance characteristics determined by [facility]'s [place] [place]. This test has been authorized by FDA under an Emergency Use Authorization (EUA). This test has been validated in accordance with the FDA's Guidance Document "Policy for Diagnostics Testing in Laboratories Certified to Perform High Complexity Testing under CLIA prior to Emergency use Authorization for Coronavirus Disease 2019 during the Public Health Emergency" issued on April 14, 2019. Test performed by [facility] [place], [address] [place] [address]. INFLUENZA A PCR: Negative for Influenza A by RT-PCR INFLUENZA B PCR: Negative for Influenza B by RT-PCR [facility] Comment on above: Performed By: #### [id number] #### [facility] CLIA [id number] [address] [place] [address] [place] 03-15-2022 Note HNO ID: [id number] Author: Garrick Urrutia MD Service: ? Author Type: Physician Type: Progress Notes Filed: 03/15/2022 12:05 PM Note Text: Patient presents with: Sore Throat: Congestion, ALCANTAR x2 days HPI: Feeling sick since yesterday Positive symptoms: Sore throat, Nasal Congestion, Rhinorrhea, Headache, Negative symptoms: Cough, Fever, Nausea, Vomiting, Diarrhea, OTC: honey-garlic Currently . Mother is undergoing Chemo. MEDICATIONS: Current Outpatient Medications Medication Sig acetaminophen (TYLENOL 8 HOUR ORAL) Take by mouth. (Patient not taking: Reported on 03/15/2022) No current facility-administered medications for this visit. ALLERGIES: ALLERGIES No Known Allergies VITALS: BP 110/62 Pulse 77 Temp 36.9 ?C (98.5 ?F) Resp 18 Wt 55.7 kg (122 lb 12.8 oz) LMP 01/14/2022 (Within Days) SpO2 99% BMI 21.75 kg/m? PHYSICAL EXAM: GEN: mildly ill appearing HEENT: PERRL, EOMI, conjunctiva clear Ears: canals clear. TMs without erythema, bulge, or effusion Nose: sniffing drainage Throat: moist mucous membranes, mild erythema, no exudate Neck: supple, no thyromegaly, no lymphadenopathy HEART: regular rate and rhythm, no murmurs LUNGS: clear to auscultation, no wheezes or crackles, no increased WOB ASSESSMENT/PLAN: 1. Sore throat - ICD9: 462, ICD10: J02.9 (primary diagnosis) 2. URI, acute - ICD9: 465.9, ICD10: J06.9 - STREP A MOLECULAR (POC) - negative. - suspect viral URI, differential includes COVID-19 and influenza. - Discussed supportive care treatment with home isolation, rest, cold medicine, and analgesia. - Red flags to seek further treatment include chest pain, shortness of breath, and lethargy; in the ER if severe. - COVID WITH FLUA+B, ROUTINE - recommended considering tamiflu after discussion with PRESS BRAKE OPERATOR if positive for influenza. Garrick Urrutia MD [facility] 03-15-2022 History of Present illness Narrative Patient presents with: Sore Throat: Congestion, ALCANTAR x2 days HPI: Feeling sick since yesterday Positive symptoms: Sore throat, Nasal Congestion, Rhinorrhea, Headache, Negative symptoms: Cough, Fever, Nausea, Vomiting, Diarrhea, OTC: honey-garlic Currently . Mother is undergoing Chemo. MEDICATIONS: Current Outpatient Medications Medication Sig acetaminophen (TYLENOL 8 HOUR ORAL) Take by mouth. (Patient not taking: Reported on 03/15/2022) No current facility-administered medications for this visit. ALLERGIES: ALLERGIES No Known Allergies VITALS: BP 110/62 Pulse 77 Temp 36.9 C (98.5 F) Resp 18 Wt 55.7 kg (122 lb 12.8 oz) LMP 01/14/2022 (Within Days) SpO2 99% BMI 21.75 kg/m PHYSICAL EXAM: GEN: mildly ill appearing HEENT: PERRL, EOMI, conjunctiva clear Ears: canals clear. TMs without erythema, bulge, or effusion Nose: sniffing drainage Throat: moist mucous membranes, mild erythema, no exudate Neck: supple, no thyromegaly, no lymphadenopathy HEART: regular rate and rhythm, no murmurs LUNGS: clear to auscultation, no wheezes or crackles, no increased WOB ASSESSMENT/PLAN: 1. Sore throat - ICD9: 462, ICD10: J02.9 (primary diagnosis) 2. URI, acute - ICD9: 465.9, ICD10: J06.9 - STREP A MOLECULAR (POC) - negative. - suspect viral URI, differential includes COVID-19 and influenza. - Discussed supportive care treatment with home isolation, rest, cold medicine, and analgesia. - Red flags to seek further treatment include chest pain, shortness of breath, and lethargy; in the ER if severe. - COVID WITH FLUA+B, ROUTINE - recommended considering tamiflu after discussion with PRESS BRAKE OPERATOR if positive for influenza. Garrick Urrutia MD documented in this encounter [facility] 03-23-2021 Note HNO ID: [id number] Author: Jaime Winters APRN.ROTARY SOIL STABILIZER OPERATOR Service: ? Author Type: Nurse Practitioner Type: Progress Notes Filed: 03/23/2021 3:15 PM Note Text: Subjective HPI Nontoxic female presents urgent care chief plaint left ear pain. Duration of symptoms 2 days. Associated symptoms left ear pain nasal drainage and cough. Presents today for evaluation of ear pain. Denies any OTC medication use. Denies any known sick contacts. Did have COVID-19 in February of this year. Denies any fevers productive cough chest pain shortness of breath pleuritic pain hemoptysis nausea vomiting abdominal pain or change in bowel or bladder habits. Past medical history prescription medication use allergies reviewed. .Patient presents with: Ear Pain: pain rated 3 on pain scale, x2 days, denied fever, chills Follow Up: loss voice x1 day after cheeleading competition PAST MEDICAL HISTORY Diagnosis Date - ACL tear left - Scoliosis of thoracic spine PAST SURGICAL HISTORY Procedure Laterality Date - BACK SURGERY HX 2016 thoracic fusion - KNEE SURGERY HX Left 05/2015 tibial osteotomy - KNEE SURGERY HX Left 2011 ACL reconstruction - PAST SURGICAL HISTORY OF 02/2020 ACL reonstruction ALLERGIES Patient has no known allergies. MEDICATIONS acetaminophen (TYLENOL 8 HOUR ORAL) Take by mouth. FAMILY HISTORY Problem Relation Age of Onset - other (heart problems) Maternal Grandfather - other (kidney problems) Maternal Grandfather paternal side - other (post-op bloot clot) Maternal Grandfather Social History Tobacco Use - Smoking status: Never Smoker - Smokeless tobacco: Never Used - Tobacco comment: Not Currently Vaping Use - Vaping Use: Never used Substance Use Topics - Alcohol use: No - Drug use: No BP 100/74 Pulse 111 Temp 36.7 ?C (98.1 ?F) (Temporal Artery) Resp 16 Wt 54.9 kg (121 lb) LMP 12/19/2020 SpO2 99% BMI 21.43 kg/m? Hr 83 Review of Systems Constitutional: Negative for chills, fever and malaise/fatigue. HENT: Positive for congestion and ear pain. Negative for ear discharge, sinus pain and sore throat. Eyes: Negative for blurred vision, pain, discharge and redness. Respiratory: Positive for cough. Negative for hemoptysis, sputum production, shortness of breath, wheezing and stridor. Cardiovascular: Negative for chest pain. Gastrointestinal: Negative for abdominal pain, diarrhea, nausea and vomiting. Musculoskeletal: Negative for myalgias. Skin: Negative for itching and rash. Neurological: Negative for dizziness and headaches. Objective Physical Exam Vitals and nursing note reviewed. Constitutional: General: She is not in acute distress. Appearance: She is not diaphoretic. HENT: Head: Normocephalic and atraumatic. Jaw: No trismus. Right Ear: Hearing, tympanic membrane, ear canal and external ear normal. No decreased hearing noted. No drainage, swelling or tenderness. No mastoid tenderness. Tympanic membrane is not perforated, erythematous or bulging. Left Ear: Hearing, tympanic membrane, ear canal and external ear normal. No decreased hearing noted. No drainage, swelling or tenderness. No mastoid tenderness. Tympanic membrane is not perforated, erythematous or bulging. Mouth/Throat: Lips: [place]. Pharynx: Uvula midline. No pharyngeal swelling, oropharyngeal exudate, posterior oropharyngeal erythema or uvula swelling. Eyes: General: Right eye: No discharge. Left eye: No discharge. Conjunctiva/sclera: Conjunctivae normal. Pupils: Pupils are equal, round, and reactive to light. Cardiovascular: Rate and Rhythm: Normal rate and regular rhythm. Heart sounds: Normal heart sounds. Pulmonary: Effort: Pulmonary effort is normal. No respiratory distress. Breath sounds: Normal breath sounds. No wheezing or rales. Chest: Chest wall: No tenderness. Abdominal: Palpations: Abdomen is soft. Tenderness: There is no abdominal tenderness. Musculoskeletal: General: No tenderness. Normal range of motion. Cervical back: Normal range of motion and neck supple. Lymphadenopathy: Head: Right side of head: No submental, submandibular, tonsillar, preauricular, posterior auricular or occipital adenopathy. Left side of head: No submental, submandibular, tonsillar, preauricular, posterior auricular or occipital adenopathy. Cervical: No cervical adenopathy. Right cervical: No superficial or posterior cervical adenopathy. Left cervical: No superficial or posterior cervical adenopathy. Skin: General: Skin is warm and dry. Findings: No rash. Neurological: Mental Status: She is alert and oriented to person, place, and time. ASSESSMENT/PLAN: 1. Left ear pain - ICD9: 388.70, ICD10: H92.02 No evidence of bacterial infection at this time. We will treat conservatively. Patient was educated on supportive therapies. Patient will follow up with primary care provider as needed. Patient was instructed to immediately (more content not included)... [facility] 10-13-2020 History of Present illness Narrative Radiology Service Progress Note PATIENT NAME: Pan Berg DATE OF SERVICE: October 13, 2020 TIME: 9:06 AM PATIENT IDENTITY VERIFICATION COMPLETED USING TWO (2) IDENTIFIERS: Name and Date of confirmed by patient verbally. FALL SCREENING: Has the patient had 2 falls in the last year or 1 fall with injury or currently using an Ambulatory Assistive Device (Walker, Cane, Wheelchair, Crutches, etc.)? No PATIENT GENDER DATA: Female. status: : No status: NO. PATIENT RELEVANT IMPLANT DATA REVIEWED: Not Applicable RADIOLOGY DEPARTMENT: General X-ray: Exam(s) Completed: Lower Extremity X-Ray(s): Knee, AP / Lat / Tunne / Merchant Left and Wt. 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, acquired 06/17/20142015 Pain in joint, lower leg 12/17/2011 016 documented as of this encounter (statuses as of 03/15/2022) [facility] Diagnosis Sore throat- Primary Acute pharyngitis URI, acute Acute upper respiratory infections of unspecified site documented [facility] this [facility] Diagnosis Onset Date Resolution Status History of miscarriage acute acute Supervision of normal acute [facility] Work Phone: Evaluation note* Diagnosis Onset Date Resolution Status History of miscarriage acute acute Supervision of normal acute History of miscarriage acute acute Supervision of normal acute History of miscarriage acute acute Supervision of normal acute History of miscarriage acute acute Supervision of normal acute History of miscarriage acute acute Supervision of normal acute [facility] Work Phone: Evaluation note* Diagnosis Onset Date Resolution Status History of miscarriage acute acute Supervision of normal acute History of miscarriage acute acute Supervision of normal acute History of miscarriage acute acute Supervision of normal acute History of miscarriage acute acute Supervision of normal acute History of miscarriage acute acute Supervision of normal acute History of miscarriage acute resolved Supervision of normal acute Supervision of normal first resolved Threatened resolved [facility] Work Phone: Evaluation note* Diagnosis Onset Date Resolution Status History of miscarriage acute acute Supervision of normal acute History of miscarriage acute acute Supervision of normal acute History of miscarriage acute acute Supervision of normal acute History of miscarriage acute acute Supervision of normal acute History of miscarriage acute acute Supervision of normal acute History of miscarriage acute resolved Supervision of normal acute Supervision of normal first resolved Threatened resolved History of miscarriage acute acute Supervision of normal acute History of miscarriage acute acute Supervision of normal acute History of miscarriage acute acute Supervision of normal acute History of miscarriage acute acute Supervision of normal acute [facility] Work Phone: Evaluation note* Diagnosis Pain Generalized [facility] Additional Instructions Return to for IOL 11/10/22 @ 7 am. [facility] [phone] Reason for referral (narrative)* Diagnostic Procedure Only (Routine) - Closed Specialty Diagnoses / Procedures Referred By Tl george Referred To Contact XR IMAGING Diagnoses Pain Procedures XR KNEE GENERAL 4V AP BOTH/PA BOTH/LAT/MERC LT KNEE AP-WGT/LAT/MERCHANT Gregory Alexander PA-C [address] [place] [address] [place] [address] Referral ID Status Reason Start Date Expiration Date V isits Requested Visits Authorized [id number] Closed Auto-Generate d Referral 10/07/2020 11/06/2021 1 1 [facility] Summary Purpose Family History No Family History Records Found Relationship Condition Age at Onset Recorded Date/T karla grandfather Diabetes mellitus Unknown Status post aortic valve replacement Unkn own Advance Directives No Advanced Directives Records Found Advance Directive Response Recorded Date/ Time Living Will No March 10 1:09pm Power of Sap Security Consultant No March 10, 2021 1:09pm Advance Directive Response Recorded Date/ Time Living Will No July 21, 2022 8 :08am Power of Sap Security Consultant No July 21, 2022 8:08am Advance Directive Response Recorded Date/ Time Living Will No September 23 3:13pm Power of Sap Security Consultant No September 23, 2 023 3:13pm Health Concerns Infection Onset Date Last Indicated Resolved Time COVID-19 Rule-Out 03/15/2022 03/15/2022 Chief Complaint and Reason for Visit Chief Complaint new ob lmp 01/18 ENCOUNTER FOR SUPERVISION OF NORMAL PREG Reason for Visit History of miscarria ge Supervision of normal Chief Complaint E ORDERS 11 WK OB 15 WK OB 19 WK OB 26 WK OB, pt not seen since 06/08 E-ORDER 27 WK OB Reason for Visit History of miscarria ge Supervision of normal History of miscarriage Supervision of normal History of miscarriage Supervision of normal History of miscarriage Supervision of normal History of miscarriage Supervision of normal Chief Complaint 26 WK OB, pt not see n since 06/08 E-ORDER 27 WK OB 29 WK OB 32 WK OB, req for KW 34 WK OB 36 WK OB Reason for Visit History of miscarria ge Supervision of normal History of miscarriage Supervision of normal History of miscarriage Supervision of normal History of miscarriage Supervision of normal History of miscarriage Supervision of normal History of miscarriage Supervision of normal Supervision of normal first Threatened Chief Complaint 26 WK OB, pt not see n since 06/08 E-ORDER 27 WK OB 29 WK OB 32 WK OB, req for KW 34 WK OB 36 WK OB 37 WK OB 38 WK OB 39 WK OB *10 min ok per SM 40 WK OB NST Reason for Visit History of miscarria ge Supervision of normal History of miscarriage Supervision of normal History of miscarriage Supervision of normal History of miscarriage Supervision of normal History of miscarriage Supervision of normal History of miscarriage Supervision of normal Supervision of normal first Threatened History of miscarriage Supervision of normal History of miscarriage Supervision of normal History of miscarriage Supervision of normal History of miscarriage Supervision of normal Additional Source Comments INFORMATION SOURCE (unrecogn ized section and content) DATE CREATED AUTHOR [facility]10[facility] DATE CREATED AUTHOR AUTHOR'S ORGANIZ ATION 03/08/2019 [facility] DATE CREATED AUTHOR AUTHOR'S ORGANIZ ATION 03/16/2022 [facility] DATE CREATED AUTHOR AUTHOR'S ORGANIZ ATION 06/16/2022 [facility] DATE CREATED AUTHOR AUTHOR'S ORGANIZ ATION 12/11/2023 [facility] Source Comments (unrecognize d section and content) In the event this informatio n is protected by the Federal Confidentiality of Alcohol and Drug Abuse Patient Records regulations: The Federal rules restrict any use of the information to criminally investigate or prosecute any alcohol or drug abuse patient.[facility] the event this information is protected by the Federal Confidentiality of Alcohol and Drug Abuse Patient Records regulations: The Federal rules restrict any use of the information to criminally investigate or prosecute any alcohol or drug abuse patient.[facility] Reason for Visit (unrecogniz ed section and content) Reason Comments Sore Throat Congestion, ALCANTAR x2 da ys Reason Comments Radio Gen RMP Specialty Diagnoses / Procedures Referred By Contac t Referred To Contact XR IMAGING Diagnoses Pain Procedures XR KNEE GENERAL 4V AP BOTH/PA BOTH/LAT/MERC LT KNEE AP-WGT/LAT/MERCHANT Gregory Alexander PA-C [address] [place] [address] [place] [id number] Referral ID Status Reason Start Date Expiration Date V isits Requested Visits Authorized Closed Auto-Generate d Referral 10/07/2020 11/06/2021 1 1 Care Teams (unrecognized sec tion and content) Learning Consultant Relationship Specialty Start Date End Date Isabella Hernandez, CHIROPRACTIC CARE.ROTARY SOIL STABILIZER OPERATOR [address] [place] [address] PCP - General Family Medicine 01/21/20 Team Status: Active Member Role Status Dates Dr. Abilio Leon MD Family Provider Active Isabella Hernandez BLACKENER, BLACKENER-C Primary Care Provider Active Team Status: Inactive Member Role Status Dates Isabella Hernandez BLACKENER, BLACKENER-C Primary Care Provider, Referri ng Provider Active Dr. Shruthi Houston DO Attending Provider Activ e Team Status: Inactive Member Role Status Dates Isabella Hernandez BLACKENER, BLACKENER-C Primary Care Provider Active Dr. Shruthi Houston DO Attending Provider, Refe rring Provider Active Team Status: Inactive Member Role Status Dates Isabella Hernandez BLACKENER, BLACKENER-C Primary Care Provider, Referri ng Provider Active Hayde Richard CNM Attending Provider Active Team Status: Inactive Member Role Status Dates Isabella Hernandez BLACKENER, BLACKENER-C Primary Care Provider, Referri ng Provider Active Daisy Barrera CNM Attending Provider Active Team Status: Inactive Member Role Status Dates Isabella Hernandez BLACKENER, BLACKENER-C Primary Care Provider, Referri ng Provider Active Alexandra Welsh BLACKENER, BLACKENER-C Attending Provider Active Team Status: Inactive Member Role Status Dates Isabella Hernandez BLACKENER, BLACKENER-C Primary Care Provider Active Dr. Shruthi Houston DO Attending Provider Activ e Team Status: Inactive Member Role Status Dates Isabella Hernandez BLACKENER, BLACKENER-C Primary Care Provider Active Daisy Barrera CNM Attending Provider, Referring Pro vider Active Learning Consultant Relationship Specialty Start Date End Date Isabella Hernandez, CHIROPRACTIC CARE.ROTARY SOIL STABILIZER OPERATOR [address] [place] [address] PCP - General Family Medicine 01/21/20 Goals (unrecognized section and content) Goals may be documented in a n alternate sectionGoals may be documented in an alternate sectionGoals may be documented in an alternate sectionGoals may be documented in an alternate section FOR RECORDS PERTAINING TO PATIENTS WHO ARE OR HAVE BEEN ENROLLED IN A CHEMICAL DEPENDENCY/SUBSTANCEABUSE PROGRAM, SOME INFORMATION MAY BE OMITTED. This clinical summary was aggregated from multiple sources. Caution should be exercised in using it in the provision of clinical care. This summary normalizes information from multiple sources, and as a consequence, information in this document may materially change the coding, format and clinical context of patient data. In addition, data may be omitted in some cases. CLINICAL DECISIONS SHOULD BE BASED ON THE PRIMARY CLINICAL RECORDS. [email or web address] provides no warranty or guarantee of the accuracy or completeness of information in this document.
[2024-11-19 20:08] LABS: Chlamydia By Nucleic Acid AMP Negative (Negative); Gonococcus By Nucleic Acid AMP Negative (Negative)
== END | disposition home or self-care (01) ==
PROVIDERS: PCP Registered Nurse; Referring Provider Obstetrics & Gynecology; Visit Provider Obstetrics & Gynecology
DX: O09.90 Supervision of high risk pregnancy, unspecified, unspecified trimester (principal); Z3A.00 Weeks of gestation of pregnancy not specified; Z12.4 Encounter for screening for malignant neoplasm of cervix
CPT/HCPCS: 87077; 87086; 87088; 87186; 87491; 87591; 88175; G0145

== ENCOUNTER → 2024-11-19 | Outpatient (CLI) | payer OTHER, SELFPAY ==
[2024-11-19 17:39] LABS: hCG Titer Quant., Serum 2177 mIU/mL (<9 non-preg)
== END | disposition home or self-care (01) ==
PROVIDERS: Obstetrics & Gynecology; PCP Registered Nurse; Visit Provider Advanced Practice Midwife
DX: O20.0 Threatened abortion (principal); Z3A.00 Weeks of gestation of pregnancy not specified
CPT/HCPCS: 36415; 84702

== ENCOUNTER → 2024-11-21 | Outpatient (CLI) | payer OTHER, SELFPAY ==
[2024-11-21 17:08] LABS: hCG Titer Quant., Serum 4689 mIU/mL (<9 non-preg)
== END | disposition home or self-care (01) ==
PROVIDERS: Obstetrics & Gynecology; PCP Registered Nurse; Visit Provider Obstetrics & Gynecology
DX: O20.0 Threatened abortion (principal); Z3A.00 Weeks of gestation of pregnancy not specified
CPT/HCPCS: 36415; 84702

== ENCOUNTER → 2024-11-23 | Outpatient (CLI) | payer OTHER, SELFPAY ==
[2024-11-23 17:16] LABS: hCG Titer Quant., Serum 7940 mIU/mL (<9 non-preg)
== END | disposition home or self-care (01) ==
LOC: BWCLAB 13:27
PROVIDERS: PCP Registered Nurse; Visit Provider Advanced Practice Midwife
DX: Z34.90 Encounter for supervision of normal pregnancy, unspecified, unspecified trimester (principal)
CPT/HCPCS: 36415; 84702

== ENCOUNTER → 2024-12-07 | Outpatient (CLI) | payer OTHER, SELFPAY ==
[2024-12-07 12:34] LABS: Hematocrit 37.6 % (37-47); Hemoglobin 13.6 g/dL (12.0-15.0); Immature Granulocytes Count 0.020 X10^3/uL (0.0-0.0); Mean Corp Hgb Conc 36.2 g/dL (32-36); Mean Corpuscular Volume 88.5 fL (81-99); Mean Platelet Vol. 9.0 fl (6.2-12.0); NRBC Flagged by Analyzer 0 % (0-5); Platelet Count 288 K/mm3 (150-450); RBC Distribution Width CV 12.2 % (11.6-14.6); RBC Distribution Width SD 39.8 fl (35.1-43.9); Red Blood Count 4.25 M/mm3 (4.2-5.4); White Blood Count 6.3 K/mm3 (4.4-11.0)
[2024-12-07 13:19] LABS: HIV Nonreactive (Nonreactive); Hepatitis B Surface Antigen Nonreactive (Nonreactive); Hepatitis C Antibody Nonreactive (Nonreactive); Syphilis Antibodies Nonreactive (Nonreactive)
== END | disposition home or self-care (01) ==
PROVIDERS: PCP Registered Nurse; Visit Provider Obstetrics & Gynecology
DX: O09.90 Supervision of high risk pregnancy, unspecified, unspecified trimester (principal); Z3A.00 Weeks of gestation of pregnancy not specified
CPT/HCPCS: 36415; 85025; 86703; 86762; 86780; 86803; 86850; 86900; 86901; 87340

== ENCOUNTER → 2025-01-15 | Outpatient (CLI) | payer OTHER, SELFPAY | END | disposition home or self-care (01) | LOC: LABSPEC 15:44 | PROVIDERS: PCP Registered Nurse; Visit Provider Advanced Practice Midwife | DX: O23.40 Unspecified infection of urinary tract in pregnancy, unspecified trimester (principal); Z3A.00 Weeks of gestation of pregnancy not specified | CPT/HCPCS: 87077; 87086; 87088 ==